=== PATIENT | female | born 1940 | race Caucasian/White ===

== ENCOUNTER 2021-06-24 21:28 | Inpatient (IN) | payer MEDICARE, OTHER ==
[~2021-06-24] VITALS: Ht 170.2 cm; Wt 90.7 kg
--- NOTE | 2021-06-24 21:49 | NUR ---
BIBRA C/O OF SOB HX OF CHF. ARRIVED SATTING 100% ON EMS BREATHING TREATMENT WITH LABORED BREATHING AND AUDITORY WHEEZES BILATERALLY. BT PLACED ON 5LPM NC SATTING 97%. A&OX4 PLACED ON MONITOR AND PULSE. MD AT BEDSIDE FOR EVAL.
[2021-06-24] MEDS ORDERED: ALBUTEROL FS 2.5 MG/3 ML VIAL.NEB ONE (22:26)
[2021-06-24] MEDS ORDERED: IPRATROPIUM NEB FS 0.5 MG/2.5 ML AMPUL.NEB ONE (22:26)
--- NOTE | 2021-06-24 22:26 | NUR ---
RT AT BEDSIDE
--- NOTE | 2021-06-24 22:26 | NUR ---
COVID SWABS SENT TO LAB
[2021-06-24] MEDS ORDERED: ALBUTEROL FS 2.5 MG/3 ML VIAL.NEB CONTNEB ONE (22:30)
[2021-06-24] MEDS ORDERED: IPRATROPIUM NEB FS 0.5 MG/2.5 ML AMPUL.NEB NEB ONE (22:30)
[2021-06-24 22:50] LABS: ABG BASE EXCESS 0.9 mmol/L; ABG PCO2 42.5 mmHg (35.0-45.0); ABG PH 7.401 (7.350-7.450); COHb 0.3 % (0.5-1.5); MetHb 0.4 % (0.0-1.5); O2Hb 93.9 % (94.0-97.0); SITE, ABG Right Brachial
[2021-06-24 23:17] LABS: BASOPHILS % (AUTO) 0.4 % (0.0-2.0); EOSINOPHILS % (AUTO) 0.3 % (0.0-6.0); HEMATOCRIT 32 % (33-45); LYMPHOCYTES # (AUTO) 0.9 K/uL (0.8-4.8); LYMPHOCYTES % (AUTO) 7.4 % (20.0-44.0); MEAN CORPUSCULAR HGB CONC 32 g/dl (31.0-36.0); MEAN CORPUSCULAR VOLUME 89 fL (82-100); MONOCYTES # (AUTO) 0.5 K/uL (0.1-1.30); MONOCYTES % (AUTO) 4.1 % (2.0-12.0); NEUTROPHILS # (AUTO) 10.3 K/uL (1.8-8.9); NEUTROPHILS % (AUTO) 87.8 % (43.0-81.0); PLATELET COUNT (AUTO) 130 K/uL (150-450); RED BLOOD CELL COUNT(AUTO) 3.55 MIL/uL (4.0-5.2); WHITE BLOOD COUNT (AUTO) 11.7 K/uL (4.3-11.0)
[2021-06-24 23:38] LABS: CALCIUM, SERUM 8.6 mg/dL (8.5-10.1); CARBON DIOXIDE 30 mmol/L (21-32); CHLORIDE 100 mmol/L (98-107); CREATININE 1.7 mg/dL (0.6-1.3); GLUCOSE 338 mg/dL (74-106); POTASSIUM 4.2 mmol/L (3.5-5.1); SODIUM SERUM 136 mmol/L (136-145); UREA NITROGEN, BLOOD 51 mg/dL (7-18)
[2021-06-24] MEDS ORDERED: FUROSEMIDE 40 MG/4 ML VIAL ONE (23:57)
[2021-06-25 00:41] LABS: BAND % (MANUAL) 1 % (0.0-5.0); EOSINOPHILS % (MANUAL) 1 % (0-4); LYMPHOCYTES % (MANUAL) 7 % (16-48); METAMYELOCYTES % 1 % (0-0); MONOCYTES % (MANUAL) 2 % (0-11.0); MYELOCYTES % 1 % (0-0); NEUTROPHILS % (MANUAL) 87 (42-76)
--- NOTE | 2021-06-25 00:58 | NUR ---
CALLED [facility], TIME MOTION ANALYST DR VALENCIA
[2021-06-25] MEDS ORDERED: ERYTHROMYCIN BASE OPHTH 3.5 GM TUBE OP ONE (01:30)
[2021-06-25] MEDS ORDERED: MAGNESIUM HYDROXIDE 30 ML UDC PO PRN (01:30)
[2021-06-25] MEDS ORDERED: ZOLPIDEM TARTRATE 5 MG TABLET PO PRN (01:30)
[2021-06-25] MEDS ORDERED: ONDANSETRON HCL/PF 4 MG/2 ML VIAL IVP PRN (01:30)
[2021-06-25] MEDS ORDERED: Z GUARD REMEDY 2 OZ OINT TP PRN (01:30)
[2021-06-25] MEDS ORDERED: MAG HYDROX/AL HYDROX/SIMETH 30 ML UDC PO PRN (01:30)
[2021-06-25] MEDS ORDERED: ERYTHROMYCIN BASE OPHTH 3.5 GM TUBE ONE (01:44)
--- NOTE | 2021-06-25 01:54 | NUR ---
REPORT GIVEN TO SHALONDA TAVERAS FOR BINA
--- NOTE | 2021-06-25 02:00 | NUR ---
TELE/RN ADMITTING NOTE RECEIVED REPORT FROM COLD MEAT COOK JOSE. PATIENT BEING ADMITTED FOR CHF EXACERBATION AND ACUTE RESPIRATORY FAILURE. PATIENT IS ALERT AND ORIENTED X 1 - CONFUSED, ATTEMPTING TO PULL OFF O2 AND PULL IV LINE. BILATERAL SOFT WRIST RESTRAINTS ORDERED AND IN PLACE WITH POSITIVE CIRCULATION. NO SKIN ISSUES NOTED AROUND RESTRAINTS. PATIENT CONTINUES ON O2 VIA NRB MASK @ 15L WITH NO S/SX OF RESPIRATORY DISTRESS NOTED. IV ACCESS TO LEFT AC #18G INTACT, PATENT AND SALINE LOCKED. CONTINUES ON IV ABX. CONTINUES ON IV DIURETIC. SKIN CHECK PERFORMED WITH BRUISES NOTED TO ABDOMEN AND BILATERAL THIGHS , REDNESS/EXCORIATION TO SACRUM AND GROIN. PICTURES TAKEN AND PLACED IN CHART. TELE MONITOR APPLIED WITH READING OF CONTROLLED AFIB HR 77. CONTINUES ON NPO STATUS. CALL LIGHT WITHIN REACH. ASPIRATION, FALL AND SAFETY PRECAUTIONS MAINTAINED. WILL CONTINUE TO MONITOR.
[2021-06-25] MEDS ORDERED: FUROSEMIDE 40 MG/4 ML VIAL IV ONE ×2 (03:00)
[2021-06-25 03:14] VITALS: BP 106/55
[2021-06-25 04:00] VITALS: BP 118/53
[2021-06-25 05:34] LABS: ABG BASE EXCESS -0.5 mmol/L; ABG PCO2 43.3 mmHg (35.0-45.0); ABG PH 7.375 (7.350-7.450); ABG PO2 104.3 mmHg (75.0-100.0); COHb 0.1 % (0.5-1.5); MetHb 0.2 % (0.0-1.5); O2Hb 97.3 % (94.0-97.0); SITE, ABG Right Brachial; VENT MODE, BG NRB 15L
[2021-06-25] MEDS ORDERED: PIPERACILLIN /TAZOBACTAM 3.375 G VIAL IV ONE (05:50)
[2021-06-25] MEDS ORDERED: PIPERACILLIN /TAZOBACTAM 3.375 G in IV D5W 50 ML IV ONE (06:00)
--- NOTE | 2021-06-25 06:20 | NUR ---
TELE/RN CLOSING NOTE PATIENT CURRENTLY RESTING IN BED. AWAKE, ALERT AND ORIENTED X 1-2. DENIES PAIN AT THIS TIME. CONTINUES ON O2 15L VIA NRB WITH NO S/SX OF RESPIRATORY DISTRESS NOTED. IV ACCESS TO LEFT AC #18G INTACT, PATENT AND SALINE LOCKED. CONTINUES ON IV ABX. CONTINUES ON NPO STATUS. CONTINUES ON BILATERAL SOFT WRIST RESTRAINTS WITH POSITIVE CIRCULATION AND NO SKIN ISSUES NOTED. CALL LIGHT WITHIN REACH. FREQUENT POSITION DONE. ASPIRATION, FALL AND SAFETY PRECAUTIONS MAINTAINED. WILL ENDORSE PLAN OF CARE TO ONCOMING SHIFT.
[2021-06-25 08:00] VITALS: BP 129/64
--- NOTE | 2021-06-25 10:00 | NUR ---
RN NOTE HOME MEDS BROUGHT BY DAUGHTER. MEDS RECON DONE. DR. VALERIE Cunningham AWARE OF MEDS INPUT
[2021-06-25] MEDS ORDERED: MONT10TA22 PO (10:38)
[2021-06-25] MEDS ORDERED: SENN-261 PO (10:38)
[2021-06-25] MEDS ORDERED: CLON0.1T PO (10:38)
[2021-06-25] MEDS ORDERED: CLOP75TA15 PO (10:38)
[2021-06-25] MEDS ORDERED: METO25TA6 PO (10:38)
[2021-06-25] MEDS ORDERED: BENA20TA9 PO (10:38)
[2021-06-25] MEDS ORDERED: ISOS30TA86 PO (10:38)
[2021-06-25] MEDS ORDERED: RANO500T3 PO (10:38)
[2021-06-25] MEDS ORDERED: NYST15PO4 TP (10:38)
[2021-06-25] MEDS ORDERED: QUET50TA PO (10:38)
[2021-06-25] MEDS ORDERED: ONDA4TAB11 PO (10:38)
[2021-06-25] MEDS ORDERED: ROSU10TA2 PO (10:38)
[2021-06-25] MEDS ORDERED: FURO40TA5 PO (10:38)
[2021-06-25] MEDS ORDERED: DILT-5 PO (10:38)
[2021-06-25] MEDS ORDERED: DIGO125T PO (10:38)
[2021-06-25] MEDS: IPRATROPIUM NEB FS 0.5 MG/2.5 ML AMPUL.NEB NEB SCH ×4 (11:30→19:00)
[2021-06-25] MEDS: LEVALBUTEROL HCL NEB 1.25 MG/0.5 ML VIAL.NEB NEB PRN (11:57)
[2021-06-25 12:00] VITALS: BP 129/64
[2021-06-25] MEDS: PIPERACILLIN /TAZOBACTAM 3.375 G in IV D5W 50 ML IV SCH ×3 (12:26→23:55)
[2021-06-25] MEDS: FUROSEMIDE 40 MG/4 ML VIAL IV SCH ×2 (12:27→17:00)
[2021-06-25] MEDS: methylPREDNISolone SOD SUCC 40 MG/ML VIAL IV SCH ×2 (12:27→21:38)
[2021-06-25] MEDS: METOPROLOL TARTRATE 25 MG TABLET PO SCH ×2 (14:35→17:01)
[2021-06-25] MEDS: DILTIAZEM HCL CD 240 MG PO SCH (14:36)
[2021-06-25] MEDS: BENAZEPRIL HCL 20 MG TABLET PO SCH (14:36)
[2021-06-25] MEDS: RANOLAZINE 500 MG TAB.ER.12H PO SCH ×2 (14:36→16:59)
[2021-06-25] MEDS: CLOPIDOGREL BISULFATE 75 MG TABLET PO SCH (14:36)
[2021-06-25] MEDS: ISOSORBIDE MONONITRATE (30MG) 30 MG TAB.SR.24H PO SCH (14:37)
[2021-06-25 16:00] VITALS: BP 117/56
[2021-06-25] MEDS: NYSTATIN TOP POWDER 15 GM BOTTLE TP SCH (16:59)
[2021-06-25] MEDS: DIGOXIN 0.125 MG TABLET PO SCH (17:01)
--- NOTE | 2021-06-25 19:00 | NUR ---
RN NOTE RECEIVED PATIENT IN BED, ON SEMI MOORE'S, CONFUSED, TRIES TO REMOVE NON REBREATHER MASK OFF. SATURATION AT 97% ON 15LPM VIA NRB, AFIB CONTROLLED ON THE MONITOR, HR IS 76. NOTED GISSEL MIDLINE 18G, BOTH HUBS PATENT AND FLUSHING WELL, NO S/S OF INFECTION. B SOFT WRIST RESTRAINTS IN PLACE, SKIN AND CIRCULATION WAS CHECKED. JOHNSON CATHETER CONNECTED TO URINE BAG IN PLACE, DRAINING TO A CLEAR, YELLOW OUTPUT. SAFETY MEASURES IMPLEMENTED. PATIENT BED ALARM IS ON. HEAD OF BED ELEVATED. BED IS LOCKED, IN LOWEST POSITION AND SIDE RAILS UP. CALL LIGHT WITHIN REACH OF THE PATIENT. WILL CONTINUE TO MONITOR AND REASSESS FOR ANY CHANGES.
--- NOTE | 2021-06-25 19:16 | NUR ---
RT NOTE TRIED TO TITRATE TO SIMPLE MASK. PT SPO2 DROPPED TO 88%. PLACED BACK ON NRB AT 15LPM SPO2 CLIMBED BACK TO 94-95%. NO SOB NOTED. NO S/S OF DISTRESS NOTED. WILL CONTINUE TO MONITOR T/O SHIFT.
[2021-06-25 20:00] VITALS: BP 141/57
--- NOTE | 2021-06-25 20:54 | NUR ---
RT NOTE FOUND PT WITH NRB MASK IN HER MOUTH. SPO2 86-88%. PT AWAKE AND ANXIOUS. PLACED NRB MASK BACK ON FACE. SPO2 INCREASED TO 94-95%. WILL TRY TO TITRATE AGAIN LATER. NOTIFIED SHALONDA CARCAMO. WILL CONTINUE TO MONITOR T/O SHIFT. NO SOB NOTED, NO S/S OF RESPIRATORY DISTRESS NOTED.
[2021-06-25] MEDS: QUETIAPINE FUMARATE 25 MG TABLET PO SCH ×2 (21:39→22:00)
[2021-06-25] MEDS: ATORVASTATIN 10 MG TABLET PO SCH ×3 (21:39→23:39)
[2021-06-25] MEDS: SENNOSIDES 8.6 MG TABLET PO SCH ×3 (21:39→23:39)
[2021-06-25] MEDS: HEPARIN SODIUM, PORCINE 5000 UNITS/1 ML VIAL SQ SCH (21:41)
--- NOTE | 2021-06-25 22:58 | NUR ---
RT NOTE FOUND PT ASLEEP ON NRB. SPO2 90-93%.WILL CONTINUE TO MONITOR T/O SHIFT. NO SOB NOTED, NO S/S OF RESPIRATORY DISTRESS NOTED.
--- NOTE | 2021-06-25 23:39 | NUR ---
RN NOTE PATIENT INITIALLY REFUSED PO MEDS AT 2200, BUT PATIENT CHANGED HER MIND AND TOOK THEM. PT VERY CONFUSED AND TRIES TO TAKE NRB MASK OFF DESPITE ON B SOFT WRIST RESTRAINTS. WILL CONT TO MONITOR PT. RESOLUTION EXPERT AWARE
[2021-06-26] VITALS: BP 128/66
--- NOTE | 2021-06-26 00:15 | NUR ---
RN NOTE TELEPHONE CALL FROM PATIENT'S DAUGHTER, ASKING IF ALL HOME MEDICATIONS WERE ADMINISTERED INCLUDING LANTUS 25 UNITS, AND REGULAR INSULIN. HOWEVER, NO ACTIVE SLIDING SCALE ORDERED. ACCUCHECK RESULTED 540 MG/DL, REPEATED AND REVEALED 556 MG/DL. DR PIERSON WAS NOTIFIED, ORDERS RECEIVED TO START PATIENT ON MODERATE SLIDING SCALE, AND LANTUS 25 UNITS HS. HELMINTHOLOGY TEACHERSHALONDA TAVAREZ
[2021-06-26] MEDS: BLOOD SUGAR DIAGNOSTIC 1 EACH STRIP VI SCH ×2 (00:26→07:56)
[2021-06-26] MEDS ORDERED: DEXTROSE 50%-WATER 50 ML DISP.SYRIN IV PRN ×3 (00:30→17:30)
[2021-06-26] MEDS ORDERED: *INSULIN REGULAR(HUMULIN R)HUM 100 UNIT/ML VIAL SQ PRN ×2 (00:30→12:00)
[2021-06-26] MEDS ORDERED: INSULIN REGULAR, HUMAN 100 UNIT/ML 3 ML VIAL SQ PRN ×2 (00:30→12:00)
[2021-06-26] MEDS ORDERED: INSULIN REGULAR, HUMAN 100 UNIT/ML 3 ML VIAL ONE (01:05)
[2021-06-26] MEDS ORDERED: INSULIN GLARGINE, 100 UNIT/ML CARTRIDGE SQ ONE (01:05)
--- NOTE | 2021-06-26 02:20 | NUR ---
RN NOTE BLOOD SUGAR RECHECKED PER MD ORDER, RESULTED 529 MG/DL. DR PIERSON WAS NOTIFIED, ORDER RECEIVED TO ADMINISTER 10 UNITS MORE OF REGULAR INSULIN. WILL CONT TO MONITOR. METAL FURNITURE ASSEMBLER ELSA AWARE
[2021-06-26 04:00] VITALS: BP 157/59
--- NOTE | 2021-06-26 05:00 | NUR ---
RT NOTE PT MOVING AROUND TOO, MUCH REMOVES NRB SOMEHOW, WHILE BE RESTRAINED. TOLD PT TO STOP REMOVING NRB, DOSE NOT COMPLY. SPO2 CURRENTLY 92-94%. FAMILY AND DIVORCE LEGAL ASSISTANT CAME IN TO TELL HER TO LEAVE NRB ON. STILL MOVES AORUND ALOT. WILL CONTINUE TO MONITOR T/O SHIFT. NO S/S SOB OR ACUTE RESPIRATORY DISTRESS NOTED.
[2021-06-26] MEDS: PIPERACILLIN /TAZOBACTAM 3.375 G in IV D5W 50 ML IV SCH ×3 (05:19→17:15)
[2021-06-26] MEDS: methylPREDNISolone SOD SUCC 40 MG/ML VIAL IV SCH ×3 (05:20→21:41)
[2021-06-26 06:44] LABS: EOSINOPHILS % (AUTO) 0.1 % (0.0-6.0); HEMATOCRIT 27 % (33-45); HEMOGLOBIN 9.3 g/dL (11.5-14.8); LYMPHOCYTES # (AUTO) 0.6 K/uL (0.8-4.8); LYMPHOCYTES % (AUTO) 8.3 % (20.0-44.0); MEAN CORPUSCULAR HGB CONC 34 g/dl (31.0-36.0); MEAN CORPUSCULAR VOLUME 87 fL (82-100); MONOCYTES # (AUTO) 0.2 K/uL (0.1-1.30); MONOCYTES % (AUTO) 2.2 % (2.0-12.0); NEUTROPHILS # (AUTO) 6.2 K/uL (1.8-8.9); NEUTROPHILS % (AUTO) 89.4 % (43.0-81.0); PLATELET COUNT (AUTO) 134 K/uL (150-450); RED BLOOD CELL COUNT(AUTO) 3.17 MIL/uL (4.0-5.2); WHITE BLOOD COUNT (AUTO) 6.9 K/uL (4.3-11.0)
--- NOTE | 2021-06-26 07:15 | NUR ---
RN OPENING NOTE RECEIVE REPORT FROM PRODUCTION TECH NURSE. PATIENT IN STABLE CONDITION AT TIME OF REPORT. ON NONREBREATHER MASK AT 15L/MIN WITH O2 SAT OF 96% AND ABOVE. WILL FOLLOW UP AM LABS AND DOCTOR ORDERS. PROPER ISOLATION PRECAUTION IN PLACE. ALL SAFETY MEASURE IN PLACE. BED ON LOWEST POSITION WITH HOB ELEVATED. CALL LIGHT WITHIN REACH. WILL CONTINUE TO MONITOR.
[2021-06-26 07:16] LABS: ALANINE AMINOTRANSFERASE 26 U/L (12-78); ALBUMIN 2.9 g/dL (3.4-5.0); ALKALINE PHOSPHATASE 72 U/L (46-116); ASPARTATE AMINOTRANSFERASE 22 U/L (15-37); BILIRUBIN,TOTAL 0.5 mg/dL (0.2-1.0); CALCIUM, SERUM 9.4 mg/dL (8.5-10.1); CARBON DIOXIDE 28 mmol/L (21-32); CHLORIDE 101 mmol/L (98-107); CREATININE 1.7 mg/dL (0.6-1.3); MAGNESIUM 2.4 mg/dL (1.8-2.4); PHOSPHORUS 3.5 mg/dL (2.5-4.9); POTASSIUM 4.4 mmol/L (3.5-5.1); SODIUM SERUM 140 mmol/L (136-145); TOTAL PROTEIN, SERUM 7.4 g/dL (6.4-8.2); UREA NITROGEN, BLOOD 56 mg/dL (7-18)
[2021-06-26 07:21] LABS: IRON, SERUM 21 ug/dl (50-175); TOTAL IRON BINDING CAPACITY 276 ug/dl (250-450)
[2021-06-26 07:33] LABS: GLUCOSE 406 mg/dL (74-106)
[2021-06-26 08:00] VITALS: BP 156/54
[2021-06-26] MEDS: FUROSEMIDE 40 MG/4 ML VIAL IV SCH ×2 (08:07→16:26)
[2021-06-26] MEDS: NYSTATIN TOP POWDER 15 GM BOTTLE TP SCH ×2 (08:08→16:27)
[2021-06-26] MEDS: MONTELUKAST SODIUM (10MG) 10 MG TABLET PO SCH (08:09)
[2021-06-26] MEDS: RANOLAZINE 500 MG TAB.ER.12H PO SCH ×2 (08:09→16:26)
[2021-06-26] MEDS: BENAZEPRIL HCL 20 MG TABLET PO SCH (08:09)
[2021-06-26] MEDS: DILTIAZEM HCL CD 240 MG PO SCH (08:09)
[2021-06-26 08:10] LABS: CREATINE KINASE, TOTAL 36 U/L (26-192); FERRITIN 340 ng/mL (8-388)
[2021-06-26] MEDS: CLOPIDOGREL BISULFATE 75 MG TABLET PO SCH (08:10)
[2021-06-26] MEDS: ISOSORBIDE MONONITRATE (30MG) 30 MG TAB.SR.24H PO SCH (08:10)
[2021-06-26] MEDS: METOPROLOL TARTRATE 25 MG TABLET PO SCH ×2 (08:10→16:27)
[2021-06-26] MEDS: HEPARIN SODIUM, PORCINE 5000 UNITS/1 ML VIAL SQ SCH ×2 (08:11→21:44)
[2021-06-26] MEDS: IPRATROPIUM BROMIDE 14 GM INHALER (or 12.9 GM) IH SCH ×3 (10:31→20:24)
[2021-06-26 12:00] VITALS: BP 113/47
[2021-06-26] MEDS ORDERED: BLOOD SUGAR DIAGNOSTIC 1 EACH STRIP VI SCH (12:00)
[2021-06-26] MEDS: DIGOXIN 0.125 MG TABLET PO SCH (12:11)
[2021-06-26 16:00] VITALS: BP 116/63
[2021-06-26] MEDS: BLOOD SUGAR DIAGNOSTIC 1 EACH STRIP IN SCH ×2 (17:20→22:57)
[2021-06-26] MEDS: INSULIN REGULAR, HUMAN 100 UNIT/ML 3 ML VIAL SQ PRN ×2 (17:22→22:59)
--- NOTE | 2021-06-26 18:54 | NUR ---
RN CLOSING NOTE PATIENT IN STABLE CONDITION THROUGH OUT SHIFT. REMAIN ON NONREBREATHER MASK AT 15L/MIN. O2 SAT AT 93% AND ABOVE. BLOOD SUGAR AT [address] MILLER WAS NOTIFIED. SLIDING SCALE WAS CHANGED TO AGGRESSIVE. 20 UNITS WAS GIVEN. ECHOCARDIOGRAM WAS DONE. ORDER FOR ABG ON 06/27. PATIENT WAS CLEAN AND REPOSITION PER PROTOCOL. PROPER ISOLATION IN PLACE. ALL SAFETY MEASURE IN PLACE. BED ON LOWEST POSITION WITH HOB ELEVATED. CALL LIGHT WITHIN REACH. WILL CONTINUE TO MONITOR AND ENDORSE TO BI ARCHITECT NURSE.
--- NOTE | 2021-06-26 19:40 | NUR ---
RN OPENING NOTES RECEIVED PATIENT ON BED, ALERT, AWAKE AND VERBALLY RESPONSIVE, RESPIRATORY EVEN AND UNLABORED, ON NRB @ 15LPM, NO SOB NOTED, DENIES PAIN, NO S/S OF DISTRESS NOTED, REMAIN AFEBRILE. CONTROLLED AFID ON DEVELOPMENT VICE PRESIDENT WITH HR-77 .RESIDENT NOTED WITH GISSEL MIDLINE PATENT, INTACT AND FLUSHED WITH NS, NO INFILTRATION NOTED IN SITE. BED IN LOWEST POSITION, LOCKED, BED ALARM ARMED. ALL NEEDS ATTENDED. CALL LIGHT WITH IN REACH.
[2021-06-26 20:00] VITALS: BP 146/78
[2021-06-26] MEDS: SENNOSIDES 8.6 MG TABLET PO SCH (21:44)
[2021-06-26] MEDS: ATORVASTATIN 10 MG TABLET PO SCH (21:45)
[2021-06-26] MEDS: QUETIAPINE FUMARATE 25 MG TABLET PO SCH (21:45)
[2021-06-26] MEDS: INSULIN GLARGINE, 100 UNIT/ML CARTRIDGE SQ SCH (23:02)
--- NOTE | 2021-06-26 23:50 | NUR ---
RN NOTES RECEIVED ORDER FROM SIMI PIERSON NP. BACTROBAN 2% BID NOTED AND CARRIED OUT. CHARGE NURSE ESME TAVAREZ.
[2021-06-27] VITALS (7 sets, daily range): BP systolic 113–139; BP diastolic 59–82
[2021-06-27] MEDS: PIPERACILLIN /TAZOBACTAM 3.375 G in IV D5W 50 ML IV SCH ×4 (00:57→17:57)
[2021-06-27] MEDS: methylPREDNISolone SOD SUCC 40 MG/ML VIAL IV SCH ×3 (05:46→20:53)
[2021-06-27 06:52] LABS: BASOPHILS % (AUTO) 0.1 % (0.0-2.0); HEMATOCRIT 25 % (33-45); LYMPHOCYTES # (AUTO) 0.8 K/uL (0.8-4.8); LYMPHOCYTES % (AUTO) 6.4 % (20.0-44.0); MEAN CORPUSCULAR HGB CONC 33 g/dl (31.0-36.0); MEAN CORPUSCULAR VOLUME 87 fL (82-100); MONOCYTES # (AUTO) 0.3 K/uL (0.1-1.30); MONOCYTES % (AUTO) 2.6 % (2.0-12.0); NEUTROPHILS # (AUTO) 10.6 K/uL (1.8-8.9); NEUTROPHILS % (AUTO) 90.9 % (43.0-81.0); PLATELET COUNT (AUTO) 142 K/uL (150-450); RED BLOOD CELL COUNT(AUTO) 2.81 MIL/uL (4.0-5.2); WHITE BLOOD COUNT (AUTO) 11.7 K/uL (4.3-11.0)
[2021-06-27 07:07] LABS: ALANINE AMINOTRANSFERASE 22 U/L (12-78); ALBUMIN 2.3 g/dL (3.4-5.0); ALKALINE PHOSPHATASE 52 U/L (46-116); ASPARTATE AMINOTRANSFERASE 20 U/L (15-37); BILIRUBIN,TOTAL 0.3 mg/dL (0.2-1.0); CALCIUM, SERUM 8.6 mg/dL (8.5-10.1); CARBON DIOXIDE 32 mmol/L (21-32); CHLORIDE 105 mmol/L (98-107); CREATININE 1.6 mg/dL (0.6-1.3); GLUCOSE 174 mg/dL (74-106); MAGNESIUM 2.3 mg/dL (1.8-2.4); PHOSPHORUS 3.8 mg/dL (2.5-4.9); POTASSIUM 4.4 mmol/L (3.5-5.1); SODIUM SERUM 142 mmol/L (136-145); TOTAL PROTEIN, SERUM 6.1 g/dL (6.4-8.2); UREA NITROGEN, BLOOD 65 mg/dL (7-18)
--- NOTE | 2021-06-27 07:11 | NUR ---
RN CLOSING NOTES PATIENT SLEEPING ON BED, RESPIRATORY EVEN AND UNLABORED, ON NRB @ 15LPM, NO SOB NOTED, DENIES PAIN, NO S/S OF DISTRESS NOTED, REMAIN AFEBRILE. .RESIDENT WITH GISSEL MIDLINE PATENT, INTACT AND FLUSHED WITH NS, NO INFILTRATION NOTED IN SITE. BED IN LOWEST POSITION, LOCKED, BED ALARM ARMED. ALL NEEDS ATTENDED. CALL LIGHT WITH IN REACH
--- NOTE | 2021-06-27 07:17 | NUR ---
WIRE FENCE BUILDER OPENING NOTE RECEIVED PATIENT FROM NIGHT NURSE, PATIENT IS IN BED A/O 2 ON A NRB AT 15L. PATIENT HAS A RIGHT ARM MIDLINE INTACT.PATIENT IS ON A TELE MONITOR READING CONTROLLED AFIB PATIENT DOES NOT COMPLAIN OF PAIN AT THIS MOMENT, SAFETY PROTOCOL IN PLACE, BED IN THE LOWEST POSITION, 3 SIDE RAILS UP AND CALL LIGHT WITHIN REACH.
[2021-06-27] MEDS: BLOOD SUGAR DIAGNOSTIC 1 EACH STRIP IN SCH ×4 (07:30→21:10)
[2021-06-27] MEDS: IPRATROPIUM BROMIDE 14 GM INHALER (or 12.9 GM) IH SCH ×3 (07:35→20:18)
[2021-06-27] MEDS: FUROSEMIDE 40 MG/4 ML VIAL IV SCH ×2 (08:49→17:13)
[2021-06-27] MEDS: NYSTATIN TOP POWDER 15 GM BOTTLE TP SCH ×2 (09:00→17:14)
[2021-06-27] MEDS: HEPARIN SODIUM, PORCINE 5000 UNITS/1 ML VIAL SQ SCH ×2 (09:01→20:54)
[2021-06-27] MEDS: ISOSORBIDE MONONITRATE (30MG) 30 MG TAB.SR.24H PO SCH (09:03)
[2021-06-27] MEDS: MONTELUKAST SODIUM (10MG) 10 MG TABLET PO SCH (09:04)
[2021-06-27] MEDS: DILTIAZEM HCL CD 240 MG PO SCH (09:04)
[2021-06-27] MEDS: RANOLAZINE 500 MG TAB.ER.12H PO SCH ×2 (09:04→17:13)
[2021-06-27] MEDS: BENAZEPRIL HCL 20 MG TABLET PO SCH (09:05)
[2021-06-27] MEDS: METOPROLOL TARTRATE 25 MG TABLET PO SCH ×2 (09:06→17:14)
[2021-06-27] MEDS: CLOPIDOGREL BISULFATE 75 MG TABLET PO SCH (09:06)
[2021-06-27] MEDS: MUPIROCIN OINT 2% 22 GM TUBE NS SCH ×2 (11:02→21:09)
[2021-06-27] MEDS: *INSULIN REGULAR(HUMULIN R)HUM 100 UNIT/ML VIAL SQ PRN ×3 (13:09→21:26)
[2021-06-27] MEDS: DIGOXIN 0.125 MG TABLET PO SCH (13:44)
--- NOTE | 2021-06-27 15:27 | NUR ---
RN NOTES - RECEIVED PATIENT ASLEEP IN BED, EASY TO AROUSE, ON OXYGEN NRB -15L, 88-96 PERCENT FLUCUTATING BETWEEN, PATIENT DOES TAKE OFF BREATHING TREATMENT OFTEN, EDUCATED TO KEEP DEVICE ON COMPLIANT AT THIS TIME, RIGHT ARM MIDLINE INTACT, TELE MONITOR READING CONTROLLED A-FIB , NO COMPLAINT OF PAIN, NO SOB NOTED , SAFETY PROTOCOLS IN PLACE, BED IN THE LOWEST POSITION, ALL WHEELS LOCKED, 3 SIDE RAILS UP AND CALL LIGHT WITHIN REACH.
--- NOTE | 2021-06-27 19:30 | NUR ---
RN OPENING NOTE RECEIVED PATIENT IN BED. A/OX2, PARAGUAYAN SPEAKING, ABLE TO MAKE BASIC NEEDS KNOWN. ON OXYGEN 15L VIA NONREBREATHER. PATIENT IS SOB WHEN REMOVING NRB MASK. BILATERAL SOFT WRIST ON, NO REDNESS AT WRIST, CAP REFILL WNL. IV ACCESS IN GISSEL MIDLINE PATENT AND SALINE LOCKED. TELE MONITOR READS CONTROLLED AFIB. BED IS LOW AND LOCKED, HOB ELEVATED IN SEMI FOWLERS, SIDE RAILS UPX2, CALL LIGHT WITHIN REACH.
[2021-06-27] MEDS: ATORVASTATIN 10 MG TABLET PO SCH (21:09)
[2021-06-27] MEDS: SENNOSIDES 8.6 MG TABLET PO SCH (21:09)
[2021-06-27] MEDS: QUETIAPINE FUMARATE 25 MG TABLET PO SCH (21:09)
[2021-06-27] MEDS: INSULIN GLARGINE, 100 UNIT/ML CARTRIDGE SQ SCH (21:27)
[2021-06-27] MEDS: ACETAMINOPHEN 325 MG TABLET PO PRN (21:32)
--- NOTE | 2021-06-27 23:00 | NUR ---
RN NOTE SPOKE WITH DAUGHTER SERINA. INFORMED HER PATIENT IS ON RESTRAINTS. DAUGHTER WAS VERY UNHAPPY THAT SHE WAS ON RESTRAINTS. INFORMED HER THAT PATIENT IS CONTINUOUSLY REMOVING OXYGEN AND O2 SATURATION GOES ALEXIS TO THE 70S. FAMILY IS REQUESTING AND DEMANDING THAT RESTRAINTS NOT BE USED ON HER MOTHER, WOULD LIKE TO SPEAK WITH THE HUMIDIFIER MAINTENANCE WORKER TOUR MANAGER SUP. TRANSFERRED TO JACKELYN LIZ. DAUGHTER IS COMING TO VISIT PATIENT AT WINDOW D/T PATIENT IS STILL R/O COVID.
[2021-06-28] VITALS (17 sets, daily range): BP systolic 90–160; BP diastolic 35–117
--- NOTE | 2021-06-28 | NUR ---
RN NOTE DAUGHTER SERINA AT WINDOW. SPOKE WITH MOTHER VIA TELE PHONE AND INFORMED HER NOT TO REMOVE MASK. STATES IF WE ARE HAVING PROBLEMS WITH HER MOTHER WE SHOULD CALL HER TO INTERPRET AND GIVE MORE EDUCATION ABOUT KEEPING ON OXYGEN.
[2021-06-28] MEDS: PIPERACILLIN /TAZOBACTAM 3.375 G in IV D5W 50 ML IV SCH ×4 (00:29→20:43)
--- NOTE | 2021-06-28 01:01 | NUR ---
RN NOTE DAUGHTER SERINA CALLED TO ASK ABOUT SACRAL WOUND, FROM LOOKING AT PREVIOUS PICTURES IN CHART IS DOES LOOK SLIGHTLY BETTER. INFORMED HER WE ARE DOING THE TREATMENT. SERINA ALSO ASKED ABOUT COVID PCR TEST, INFORMED WILL NEED TO CALL LAB TO GET RESULTS, IT MAY TAKE A WHILE. SHE WILL CALL LATER FOR UPDATE.
[2021-06-28] MEDS: methylPREDNISolone SOD SUCC 40 MG/ML VIAL IV SCH ×3 (06:00→21:36)
[2021-06-28 06:22] LABS: BASOPHILS % (AUTO) 0.1 % (0.0-2.0); HEMATOCRIT 29 % (33-45); HEMOGLOBIN 9.5 g/dL (11.5-14.8); LYMPHOCYTES # (AUTO) 0.5 K/uL (0.8-4.8); LYMPHOCYTES % (AUTO) 5.2 % (20.0-44.0); MEAN CORPUSCULAR HGB CONC 33 g/dl (31.0-36.0); MEAN CORPUSCULAR VOLUME 87 fL (82-100); MONOCYTES # (AUTO) 0.2 K/uL (0.1-1.30); MONOCYTES % (AUTO) 2.1 % (2.0-12.0); NEUTROPHILS # (AUTO) 9.3 K/uL (1.8-8.9); NEUTROPHILS % (AUTO) 92.6 % (43.0-81.0); PLATELET COUNT (AUTO) 191 K/uL (150-450); RED BLOOD CELL COUNT(AUTO) 3.38 MIL/uL (4.0-5.2); WHITE BLOOD COUNT (AUTO) 10.1 K/uL (4.3-11.0)
[2021-06-28 06:41] LABS: ALANINE AMINOTRANSFERASE 27 U/L (12-78); ALBUMIN 2.7 g/dL (3.4-5.0); ALKALINE PHOSPHATASE 44 U/L (46-116); ASPARTATE AMINOTRANSFERASE 17 U/L (15-37); BILIRUBIN,TOTAL 0.5 mg/dL (0.2-1.0); CALCIUM, SERUM 8.7 mg/dL (8.5-10.1); CARBON DIOXIDE 33 mmol/L (21-32); CHLORIDE 102 mmol/L (98-107); CREATININE 1.8 mg/dL (0.6-1.3); GLUCOSE 199 mg/dL (74-106); MAGNESIUM 2.4 mg/dL (1.8-2.4); PHOSPHORUS 4.6 mg/dL (2.5-4.9); POTASSIUM 3.7 mmol/L (3.5-5.1); SODIUM SERUM 142 mmol/L (136-145); TOTAL PROTEIN, SERUM 6.8 g/dL (6.4-8.2); UREA NITROGEN, BLOOD 71 mg/dL (7-18)
--- NOTE | 2021-06-28 07:54 | NUR ---
GAME OPERATOR NOTE PATIENT IN BED AWAKE ALERT WITH 15 L NONREBREATHER MASK SATURATION 96% AT THIS TIME, ON TELE MONITOR SR HR 65 , RT AC HL INTACT, BED IN LOWEST AND LOCKED POSITION, ON TELE MONITOR AFIB HR 100 AT THIS TIME, WITH SOB NOTED, ALL NEEDS ATTENDED TRYING TO REMOVE MASK EXPLAINED NOT TO REMOVE , WILL F\U
--- NOTE | 2021-06-28 07:57 | NUR ---
RN CLOSING NOTE RESTING IN BED. A/OX2, REMAINS ON OXYGEN 15L VIA NONREBREATHER. PATIENT CONTINUES TO REMOVE O2 MULTIPLE TIMES THROUGHOUT SHIFT. O2 SAT DROP TO 70S. DAUGHTER SERINA MADE AWARE. DAUGHTER REQUEST NOT TO PLACE BILATERAL SSFT WRIST RESTRAINTS. RN PULPIT OPERATOR JACKELYN ALSO SPOKE WITH DAUGHTER TO INFORM HER OF RISK AND BENEFITS. GISSEL MIDLINE MAINTAINED. HR CONTINUES TO BE CONTROLLED AFIB, BUT WHEN IN RESP DISTRESS DOES INCREASE TO 120S - 130. BED REMAINS LOW AND LOCKED, HOB ELEVATED IN SEMI FOWLERS, SIDE RAILS UPX2, ARASELI LIGHT WITHIN REACH. WILL ENDORSE TO ONCOMING SHIFT.
--- NOTE | 2021-06-28 08:00 | NUR ---
TERRA COTTA SETTER NOTE ROUNDS MADE NOTED PATIENT IS WHEEZING AND SATURATION 92% PATINE LESS RESPONSIVE THE EARLIER IN MORNING, RT AT BEDSIDE CALLED TO DR WILBER NIELSON TO DO ABG , WILL F\U
--- NOTE | 2021-06-28 08:20 | NUR ---
TIME STUDY STATISTICIAN NOTE ABG RESULT REPORT TO DR MOREJON BY RT PER DR PORTILLO PK TO LEAVE ON NONREBREATHER MASK , UNABLRE LARS TAKE PO MEDS AT THIS TIME WILL F\U NOTED BLEEDING FROM MOUTH, MOUTH CARE DONE WILL HOLD BLOOD THINNER MEDS WILL F\U WITH
[2021-06-28] MEDS: INSULIN GLARGINE, 100 UNIT/ML CARTRIDGE SQ SCH ×3 (08:30→17:00)
[2021-06-28 08:38] LABS: ABG BASE EXCESS -2.1 mmol/L; ABG OXYGEN SATURATION 95.1 % (92.0-98.5); ABG PCO2 50.8 mmHg (35.0-45.0); ABG PH 7.301 (7.350-7.450); AaDO2 572.2 mmHg; COHb 0.3 % (0.5-1.5); MetHb 0.3 % (0.0-1.5); O2Hb 94.5 % (94.0-97.0); SITE, ABG Left Radial; VENT MODE, BG non rebreather
[2021-06-28] MEDS: IPRATROPIUM BROMIDE 14 GM INHALER (or 12.9 GM) IH SCH ×2 (08:44→19:30)
[2021-06-28] MEDS: FUROSEMIDE 40 MG/4 ML VIAL IV SCH (08:44)
[2021-06-28] MEDS: BLOOD SUGAR DIAGNOSTIC 1 EACH STRIP IN SCH ×3 (08:47→17:45)
[2021-06-28] MEDS: MUPIROCIN OINT 2% 22 GM TUBE NS SCH ×2 (08:47→21:46)
[2021-06-28] MEDS: BENAZEPRIL HCL 20 MG TABLET PO SCH (09:00)
[2021-06-28] MEDS: CLOPIDOGREL BISULFATE 75 MG TABLET PO SCH (09:00)
[2021-06-28] MEDS: DILTIAZEM HCL CD 240 MG PO SCH (09:00)
[2021-06-28] MEDS: RANOLAZINE 500 MG TAB.ER.12H PO SCH ×2 (09:00→17:57)
[2021-06-28] MEDS: MONTELUKAST SODIUM (10MG) 10 MG TABLET PO SCH (09:00)
[2021-06-28] MEDS: HEPARIN SODIUM, PORCINE 5000 UNITS/1 ML VIAL SQ SCH (09:00)
[2021-06-28] MEDS: ISOSORBIDE MONONITRATE (30MG) 30 MG TAB.SR.24H PO SCH (09:00)
[2021-06-28] MEDS: METOPROLOL TARTRATE 25 MG TABLET PO SCH ×2 (09:00→16:49)
--- NOTE | 2021-06-28 09:00 | NUR ---
SUBSTANCE ADDICTION COORDINATOR NOTE STILL UNABLE TO GIVE PO MEDS AND HOLD INSULIN ,PATIENT IS LETHARGIC , SPOKE WITH DR CHEEK AWARE OF IT
[2021-06-28] MEDS: NYSTATIN TOP POWDER 15 GM BOTTLE TP SCH (09:05)
--- NOTE | 2021-06-28 09:59 | NUR ---
WOUND CARE CONSULT: PT SEEN PER TRANSIT COACH OPERATOR FOR SKIN ASSESSMENT. PT PRESENTS WITH MULTIPLE AREAS OF SKIN DISCOLORATION, ESPECIALLY ON ABDOMEN, GENERALIZED EDEMA, BLANCHABLE REDNESS TO HEELS AND RASH TO ABDOMINAL/GROIN FOLDS, BUTTOCKS AND PERINEUM, PRESENT ON ADMISSION. RECOMMENDATIONS MADE FOR SKIN PROTECTION. DISCUSSED WITH NURSING STAFF. PT IS ON EVERARDO ISOFLEX LOW AIRLOSS BED. MDI N AGREEMENT WITH PLAN OF CARE.
--- NOTE | 2021-06-28 10:24 | NUR ---
JUVENILE CORRECTIONS OFFICER NOTE PER DAUGHTER WANTS TO TRANSFER TO ICU FOR CLOSER OBSERVATION, DR العراقي AT BEDSIDE NOTIFIED THAT PATIENT HAS BRUISES DUE ON ABDOMEN SECONDARY TO HEPARIN INJECTION ALSO AWARE THAT WAS BLEEDING FROM MOUTH AND HOLD HEPARIN STATED ITS OK AT THIS TIME , WOUND CARE NURSE AT BEDSIDE SEEN HELLS NO WOUNDS OR REDNESS NOTED ,KEEP OF PRESSURE AT ALL TIME , AND OFF LOAD , DR CELIS AWARE THAT EARLIER PATIENT HAD RESPIRATORY DISTRESS AND DR MOREJON AWARE OF PATIENT CONDITION
--- NOTE | 2021-06-28 11:30 | NUR ---
teletypesetter monitor note transferred to icu as ordered by acls protocol report given to ricardo pritchett
[2021-06-28 12:11] LABS: *SPE A/G RATIO 0.9 (0.7-1.7); *SPE ALPHA-1-GLOBULIN 0.5 g/dL (0.0-0.4); *SPE M-SPIKE Not Observed g/dL (Not Observed)
[2021-06-28] MEDS: DIGOXIN 0.125 MG TABLET PO SCH (13:05)
[2021-06-28] MEDS: INSULIN REGULAR, HUMAN 100 UNIT/ML 3 ML VIAL SQ PRN ×2 (13:07→17:47)
[2021-06-28] MEDS: SOD FERRIC GLUC 125 MG in IV NS 0.9% 100 ML IV SCH (14:54)
[2021-06-28] MEDS ORDERED: APIXABAN 5 MG TABLET PO SCH (15:00)
[2021-06-28] MEDS: BUMETANIDE INJ 0.25 MG/ML VIAL IV SCH (16:44)
[2021-06-28] MEDS: ACETAMINOPHEN 325 MG TABLET PO PRN (16:44)
[2021-06-28] MEDS: CLOTRIMAZOLE 1% 15 GM TUBE TP SCH (17:28)
--- NOTE | 2021-06-28 17:50 | NUR ---
RN NOTE PT REPORTED CHEST PAIN ON LEFT SIDE OF PAIN 10 OUT OF [address] BLAIR OF EKG WHICH INDICATED ABNORMAL AFIB , ORDERED CXR, NTG SL, AND ABG.
--- NOTE | 2021-06-28 18:50 | NUR ---
RN NOTE ABG RESULTS SENT TO DR. MOREJON. DR MOREJON ORDERED PEEP 5, RATE 24, 100% TV 450 AND ORDER ABG POST 1 HOUR. PT IS NOW INTUBATED. PT IS FULL CODE. FAMILY WAS HESITANT AND GAVE THE OKAY TO INTUBATE.
[2021-06-28 18:58] LABS: ABG BASE EXCESS -0.5 mmol/L; ABG PCO2 91.9 mmHg (35.0-45.0); ABG PO2 45.3 mmHg (75.0-100.0); AaDO2 575.8 mmHg; COHb 0.4 % (0.5-1.5); MetHb 0.1 % (0.0-1.5); O2Hb 65.7 % (94.0-97.0); SITE, ABG Right Brachial; VENT MODE, BG 15L NON REBREATHER
--- NOTE | 2021-06-28 19:37 | NUR ---
RT NOTE PT INTUBATED @ 1919 DUE TO RESPIRATORY ACIDOSIS. 7.0 ET TUBE INSERTED @ 23 CM LIP LINE, SECURED VIA ANCHOR FAST. MODERATE THIN RED BLOODY SECRETIONS NOTED. NOTED VENT SETTINGS: AC 24, 450, 100%, +5. BILATERAL CHEST RISE NOTED. VENT PLUGGED TO RED OUTLET. ALARMS ON AND AUDIBLE. WILL CONTINUE TO MONITOR CLOSELY T/O SHIFT.
[2021-06-28] MEDS: PROPOFOL 100 ML IV PRN (20:32)
[2021-06-28 20:56] LABS: ABG BASE EXCESS 3.9 mmol/L; ABG OXYGEN SATURATION 98.3 % (92.0-98.5); ABG PH 7.455 (7.350-7.450); ABG PO2 128.4 mmHg (75.0-100.0); AaDO2 543.6 mmHg; MetHb 0.3 % (0.0-1.5); PEEP,BG 5 cm H2O; SITE, ABG Left Radial; VT, ABG 450 mL
--- NOTE | 2021-06-28 21:15 | NUR ---
ICU/PLASTICS SCIENTIST DR MOREJON CALLED AND GAVE RESULTS OF THE 1 HOUR POST INTUBATION FOR THIS PT WHICH IS CURRENTLY IN THE CHART BECAUSE IT DID NOT GO THROUGH TO THE COMPUTER. DR MOREJON GAVE ORDER FOR A/C RR-20, TV-400, FIO2-70, +5 THIS WAS FROM EARLIER A/C-24, 450,+5. ALSO ABG IN AM AND CXR.
--- NOTE | 2021-06-28 21:20 | NUR ---
ICU/ZIPPER IRONER PT'S 2 RINGS WERE GIVEN TO DAUGHTER, RAHEEM. SHE SIGNED AND THIS WAS GIVEN TO HER. CHARGE NURSE MADE AWARE.
[2021-06-28] MEDS: QUETIAPINE FUMARATE 25 MG TABLET PO SCH (21:47)
--- NOTE | 2021-06-28 21:47 | NUR ---
ICU/HR DIRECTOR PT IS CURRENTLY INTUBATED AND SEDATED, THERE IS NO NEED FOR 2200 MEDICATION OF SEROQUEL.
[2021-06-28] MEDS: SENNOSIDES 8.6 MG TABLET PO SCH (22:11)
[2021-06-28] MEDS: ATORVASTATIN 10 MG TABLET PO SCH (22:11)
[2021-06-29] VITALS (94 sets, daily range): BP systolic 78–169; BP diastolic 31–99
[2021-06-29] MEDS ORDERED: BLOOD SUGAR DIAGNOSTIC 1 EACH STRIP IN SCH
[2021-06-29] MEDS ORDERED: DEXTROSE 50%-WATER 50 ML DISP.SYRIN IV PRN
[2021-06-29] MEDS: BLOOD SUGAR DIAGNOSTIC 1 EACH STRIP IN SCH ×4 (00:19→17:07)
[2021-06-29] MEDS: INSULIN REGULAR, HUMAN 100 UNIT/ML 3 ML VIAL SQ PRN ×3 (00:20→17:20)
[2021-06-29] MEDS: PIPERACILLIN /TAZOBACTAM 3.375 G in IV D5W 50 ML IV SCH ×2 (00:23→05:10)
[2021-06-29] MEDS ORDERED: NOREPINEPHRINE 4 MG/4 ML AMPUL IV ONE (01:08)
[2021-06-29] MEDS: NOREPINEPHRINE 32 MG in IV NS 0.9% 218 ML IV PRN ×2 (01:13→21:43)
--- NOTE | 2021-06-29 01:20 | NUR ---
ICU/PARACHUTE ACCESSORIES ATTACHER PT'S BLOOD PRESSURE WAS LOW, RECIEVED AND ORDER FOR LEVO 32MCG. THIS WAS RECIEVED AND CARRIED OUT. WILL CONTINUE TO MONITOR THIS PT'S BP.
[2021-06-29] MEDS: PROPOFOL 100 ML IV PRN ×6 (03:01→23:10)
[2021-06-29] MEDS: methylPREDNISolone SOD SUCC 40 MG/ML VIAL IV SCH ×3 (05:10→21:41)
--- NOTE | 2021-06-29 05:42 | NUR ---
ICU/MILL WORK PT'S HEART RATE INCREASED TO 130'S, PT APPEARS TO HAVE BEEN WAKING UP. NOTIFED CHARGE NURSE ABOUT THIS, SEDATION OF DIPRIVAN WAS TITRATED UP. WILL CONTINUE TO MONITOR THIS PT.
[2021-06-29 05:53] LABS: HEMATOCRIT 30 % (33-45); HEMOGLOBIN 9.9 g/dL (11.5-14.8); LYMPHOCYTES # (AUTO) 0.5 K/uL (0.8-4.8); LYMPHOCYTES % (AUTO) 3.6 % (20.0-44.0); MEAN CORPUSCULAR HGB CONC 33 g/dl (31.0-36.0); MEAN CORPUSCULAR VOLUME 86 fL (82-100); MONOCYTES # (AUTO) 0.4 K/uL (0.1-1.30); MONOCYTES % (AUTO) 2.7 % (2.0-12.0); NEUTROPHILS # (AUTO) 13.5 K/uL (1.8-8.9); NEUTROPHILS % (AUTO) 93.7 % (43.0-81.0); PLATELET COUNT (AUTO) 195 K/uL (150-450); RED BLOOD CELL COUNT(AUTO) 3.51 MIL/uL (4.0-5.2); WHITE BLOOD COUNT (AUTO) 14.4 K/uL (4.3-11.0)
[2021-06-29 06:58] LABS: CALCIUM, SERUM 8.6 mg/dL (8.5-10.1); CARBON DIOXIDE 33 mmol/L (21-32); CHLORIDE 106 mmol/L (98-107); CREATININE 1.8 mg/dL (0.6-1.3); GLUCOSE 123 mg/dL (74-106); MAGNESIUM 2.4 mg/dL (1.8-2.4); POTASSIUM 3.1 mmol/L (3.5-5.1); SODIUM SERUM 147 mmol/L (136-145); UREA NITROGEN, BLOOD 77 mg/dL (7-18)
--- NOTE | 2021-06-29 07:30 | NUR ---
RN NOTES PT FOUND SEMI FOWLERS DISPLAYING NO S/S OF DISTRESS, FLACC = 0, RIKERS = 3, BILATERAL RISE AND FALL OF THE CHEST OBSERVED. RESIDUAL < 5ML. SOFT WRIST RESTRAINTS APPLIED, PULSES PALPATED BILATERALLY. JOHNSON CATH BELOW PATIENT DRAINING BY GRAVITY. R UA MIDLINE PATIENT AND INTACT. VSS, RN WILL MONITOR AND TREAT THROUGHOUT SHIFT. SAFETY MEASURES IN PLACE, BED LOCKED AND IN LOWEST POSITION, SIDE RAILS UPX2, CALL LIGHT WITHIN REACH, BED ALARM ARMED.
[2021-06-29] MEDS: IPRATROPIUM BROMIDE 14 GM INHALER (or 12.9 GM) IH SCH ×3 (07:35→20:22)
--- NOTE | 2021-06-29 07:48 | NUR ---
RT PATIENT REC'D ORALLY INTUBATED ON [facility] VENT WITH ORDERED SETTINGS EMILIA WELL. VENT ALARMS CHECKED + AUDIBLE. CUFF PRESSURE CHECKED SHEET METAL HELPER. ETT SECURE AND IN PROPER POSITION. PATIENT SEDATED AND APPEARS COMFORTABLE. AMBU BAG AT THE HOB Addendum: 06/29/21 at 1233 by MARIANO SALTER RT Amended: Links added.
[2021-06-29] MEDS ORDERED: VANCOMYCIN 1 GM in IV D5W 250 ML IV SCH (08:30)
[2021-06-29 08:55] LABS: ABG BASE EXCESS 7.1 mmol/L; ABG PCO2 41.3 mmHg (35.0-45.0); ABG PH 7.493 (7.350-7.450); ABG PO2 67.5 mmHg (75.0-100.0); COHb 0.3 % (0.5-1.5); MetHb 0.3 % (0.0-1.5); O2Hb 93.3 % (94.0-97.0); SITE, ABG Right Radial
[2021-06-29] MEDS: DILTIAZEM HCL CD 240 MG PO SCH (09:00)
[2021-06-29] MEDS: BENAZEPRIL HCL 20 MG TABLET PO SCH (09:00)
[2021-06-29] MEDS ORDERED: CEFEPIME 1 GM VIAL IM SCH (09:00)
[2021-06-29] MEDS: ISOSORBIDE MONONITRATE (30MG) 30 MG TAB.SR.24H PO SCH (09:00)
[2021-06-29] MEDS: RANOLAZINE 500 MG TAB.ER.12H PO SCH ×2 (09:00→17:00)
--- NOTE | 2021-06-29 09:00 | NUR ---
MD COMMUNICATION RN INFORMED VETERINARY TOXICOLOGIST OF PT'S VASOACTIVE RX AND PO BP RX. ACKNOWLEDGED AND ORDERED RN TO HOLD ALL EXCEPT LOPRESSOR. RN ACKNOWLEDGED AND WILL EXECUTE ORDERS DIRECTED.
[2021-06-29 09:04] LABS: THYROID STIMULATING HORMONE 1.022 uIU/mL (0.358-3.74)
[2021-06-29] MEDS: MONTELUKAST SODIUM (10MG) 10 MG TABLET PO SCH (09:23)
[2021-06-29] MEDS: METOPROLOL TARTRATE 25 MG TABLET PO SCH ×2 (09:23→17:23)
[2021-06-29] MEDS: BUMETANIDE INJ 0.25 MG/ML VIAL IV SCH ×2 (09:23→17:23)
[2021-06-29] MEDS: INSULIN GLARGINE, 100 UNIT/ML CARTRIDGE SQ SCH ×2 (09:25→17:21)
[2021-06-29] MEDS: POTASSIUM CL. PREMIX PERIPHER. 50 ML IV SCH ×3 (10:05→12:23)
[2021-06-29] MEDS ORDERED: CEFEPIME 1 GM in IV D5W 50 ML IV SCH (11:00)
[2021-06-29] MEDS ORDERED: VANCOMYCIN 1.25 GM in IV D5W 250 ML IV ONE (11:00)
[2021-06-29] MEDS ORDERED: METRONIDAZOLE 500MG/ NS 100ML 500 MG in PREMIX 1 EA IV SCH (11:00)
[2021-06-29] MEDS: DIGOXIN 0.125 MG TABLET PO SCH (12:57)
[2021-06-29] MEDS: MUPIROCIN OINT 2% 22 GM TUBE NS SCH ×2 (12:58→21:56)
[2021-06-29] MEDS: CLOTRIMAZOLE 1% 15 GM TUBE TP SCH ×2 (12:58→17:37)
[2021-06-29] MEDS: ALBUMIN 25% 25 GM in PREMIX 1 EA IV SCH ×2 (13:50→20:43)
[2021-06-29] MEDS ORDERED: ETOMIDATE 2 MG/ML VIAL IV ONE (14:46)
[2021-06-29] MEDS ORDERED: ROCURONIUM BROMIDE 50 MG/5 ML IV ONE (14:46)
[2021-06-29] MEDS: SOD FERRIC GLUC 125 MG in IV NS 0.9% 100 ML IV SCH (14:55)
[2021-06-29] MEDS: APIXABAN 2.5 MG TABLET PO SCH (17:19)
[2021-06-29] MEDS: CLOPIDOGREL BISULFATE 75 MG TABLET PO SCH (17:19)
--- NOTE | 2021-06-29 19:15 | NUR ---
RN NOTES PT FOUND SEMI FOWLERS DISPLAYING NO S/S OF DISTRESS, FLACC = 0, RIKERS = 3, BILATERAL RISE AND FALL OF THE CHEST OBSERVED. RESIDUAL < 5ML. SOFT WRIST RESTRAINTS APPLIED, PULSES PALPATED BILATERALLY. JOHNSON CATH BELOW PATIENT DRAINING BY GRAVITY. R UA MIDLINE PATIENT AND INTACT. SBAR AND REPORT GIVEN TO WIRE STRETCHER, ALL QUESTIONS ANSWERED. SAFETY MEASURES IN PLACE, BED LOCKED AND IN LOWEST POSITION, SIDE RAILS UPX2, CALL LIGHT WITHIN REACH, BED ALARM ARMED. PT ENDORSED IN STABLE CONDITION, ALL QUESTIONS ANSWERED.
[2021-06-29] MEDS: CEFEPIME 2 GM in IV D5W 100 ML IV SCH (19:48)
--- NOTE | 2021-06-29 20:23 | NUR ---
PATIENT REC'D ORALLY INTUBATED WITH 7.0 ETT SECURED @ 23 CM LIPLINE ON [place] VENT WITH THE SETTING OF AC 20,VT 400, FIO2 60% AND PEEP 5. VENT ALARMS CHECKED + AUDIBLE. CUFF PRESSURE CHECKED BOAT DETAILER. ETT SECURE AND IN PROPER POSITION. SUCTIONED MODERATE AMOUNT OF BLOODY SECRETION . AMBU BAG AT THE [facility]. NO RESPIRATORY DISTRESS NOTED AT THIS TIME. WILL CONTINUE TO MONITOR T/O SHIFT.
[2021-06-29] MEDS: SENNOSIDES 8.6 MG TABLET PO SCH (21:56)
[2021-06-29] MEDS: QUETIAPINE FUMARATE 25 MG TABLET PO SCH (21:56)
[2021-06-29] MEDS: ATORVASTATIN 10 MG TABLET PO SCH (21:56)
--- NOTE | 2021-06-29 21:57 | NUR ---
ICU/ROLL OVER PRESS OPERATOR PT IS CURRENTLY INTUBATED AND SEDATED, THERE IS NO NEED FOR 2200 MEDICATION OF SEROQUEL. WILL RESUME WHEN PT IS NO LONGER INTUBATED
--- NOTE | 2021-06-29 22:45 | NUR ---
ICU/CERTIFIED PROCEDURAL CODER WAS TOLD BY LAB THAT THERE IS NO MISC. RESP. COVID TEST. THIS REQUIRED TO BE CHANGED OVER TO THE PCR NASAL SWAB. THIS ORDER WAS CARRIED OUT.
[2021-06-30] VITALS (61 sets, daily range): BP systolic 96–164; BP diastolic 35–75
--- NOTE | 2021-06-30 00:10 | NUR ---
ICU/DIRECTOR OF COLLECTIONS AND ARCHIVES LATE ENTRY- DAUGHTER CAME IN TO SEE THIS PT, WAS UNAWARE THAT MOTHER WAS BEING TESTED FOR COVID AGAIN. WAS VERY UPSET BY THIS. ASKED WHY SHE HAD NOT BEEN INFORMED. DAUGHTER HAD MANY QUESTIONS, WAS ABLE TO ANSWER SOME OF HER QUESTIONS BUT NOT ALL, DEFER DAUGHTER TO TALK WITH MD DURING DAY SHIFT.
[2021-06-30] MEDS: PROPOFOL 100 ML IV PRN ×5 (03:40→21:21)
--- NOTE | 2021-06-30 04:10 | NUR ---
ICU/COMMUNITY MENTAL HEALTH WORKER TUBE FEEDING WAS STARTED. WILL MONITOR THE RESIDUALS ON THIS.
[2021-06-30] MEDS: ALBUMIN 25% 25 GM in PREMIX 1 EA IV SCH (04:52)
[2021-06-30] MEDS: methylPREDNISolone SOD SUCC 40 MG/ML VIAL IV SCH ×3 (04:52→21:27)
[2021-06-30 05:09] LABS: BASOPHILS % (AUTO) 0.1 % (0.0-2.0); HEMATOCRIT 26 % (33-45); HEMOGLOBIN 8.6 g/dL (11.5-14.8); LYMPHOCYTES # (AUTO) 0.4 K/uL (0.8-4.8); LYMPHOCYTES % (AUTO) 4.6 % (20.0-44.0); MEAN CORPUSCULAR HGB CONC 34 g/dl (31.0-36.0); MEAN CORPUSCULAR VOLUME 86 fL (82-100); MONOCYTES # (AUTO) 0.2 K/uL (0.1-1.30); MONOCYTES % (AUTO) 2.8 % (2.0-12.0); NEUTROPHILS # (AUTO) 7.6 K/uL (1.8-8.9); NEUTROPHILS % (AUTO) 92.5 % (43.0-81.0); PLATELET COUNT (AUTO) 162 K/uL (150-450); RED BLOOD CELL COUNT(AUTO) 2.97 MIL/uL (4.0-5.2); WHITE BLOOD COUNT (AUTO) 8.3 K/uL (4.3-11.0)
[2021-06-30] MEDS: BLOOD SUGAR DIAGNOSTIC 1 EACH STRIP IN SCH ×4 (05:26→17:15)
[2021-06-30] MEDS: OSMOLITE 1.2 CAL 1,000 ML LIQUID GT PRN (05:26)
[2021-06-30 05:34] LABS: ALANINE AMINOTRANSFERASE 22 U/L (12-78); ALBUMIN 2.9 g/dL (3.4-5.0); ALKALINE PHOSPHATASE 35 U/L (46-116); ASPARTATE AMINOTRANSFERASE 18 U/L (15-37); BILIRUBIN,TOTAL 0.8 mg/dL (0.2-1.0); CALCIUM, SERUM 7.9 mg/dL (8.5-10.1); CARBON DIOXIDE 35 mmol/L (21-32); CHLORIDE 109 mmol/L (98-107); CREATININE 1.5 mg/dL (0.6-1.3); GLUCOSE 130 mg/dL (74-106); POTASSIUM 3.1 mmol/L (3.5-5.1); SODIUM SERUM 150 mmol/L (136-145); TOTAL PROTEIN, SERUM 5.4 g/dL (6.4-8.2); UREA NITROGEN, BLOOD 68 mg/dL (7-18)
--- NOTE | 2021-06-30 06:45 | NUR ---
ICU/DIRECTOR OF PRODUCT DEVELOPMENT WAS ABLE TO TITRATE LEVO OFF OF THE PT FOR NOW, FOR STABLE BP. WILL CONTINUE TO MONITOR THIS PT.
[2021-06-30] MEDS: IPRATROPIUM BROMIDE 14 GM INHALER (or 12.9 GM) IH SCH ×2 (07:35→13:44)
[2021-06-30 07:51] LABS: ABG BASE EXCESS 3.7 mmol/L; ABG OXYGEN SATURATION 88.1 % (92.0-98.5); ABG PCO2 39.8 mmHg (35.0-45.0); ABG PH 7.461 (7.350-7.450); ABG PO2 54.6 mmHg (75.0-100.0); AaDO2 329.4 mmHg; COHb 0.3 % (0.5-1.5); MetHb 0.3 % (0.0-1.5); O2Hb 87.6 % (94.0-97.0); SITE, ABG Right Radial; VENT MODE, BG AC 20 400 60% +5
[2021-06-30] MEDS: CLOTRIMAZOLE 1% 15 GM TUBE TP SCH ×2 (08:15→17:01)
[2021-06-30] MEDS: MUPIROCIN OINT 2% 22 GM TUBE NS SCH ×2 (08:15→21:33)
[2021-06-30] MEDS: CLOPIDOGREL BISULFATE 75 MG TABLET PO SCH (08:16)
[2021-06-30] MEDS: METOPROLOL TARTRATE 25 MG TABLET PO SCH ×2 (08:16→17:01)
[2021-06-30] MEDS: MONTELUKAST SODIUM (10MG) 10 MG TABLET PO SCH (08:16)
[2021-06-30] MEDS: BUMETANIDE INJ 0.25 MG/ML VIAL IV SCH ×2 (08:16→17:00)
[2021-06-30] MEDS: CEFEPIME 2 GM in IV D5W 100 ML IV SCH ×2 (08:16→21:21)
[2021-06-30] MEDS: INSULIN GLARGINE, 100 UNIT/ML CARTRIDGE SQ SCH ×2 (08:21→17:13)
[2021-06-30] MEDS: APIXABAN 2.5 MG TABLET PO SCH (08:22)
[2021-06-30] MEDS: ISOSORBIDE MONONITRATE (30MG) 30 MG TAB.SR.24H PO SCH (09:00)
[2021-06-30] MEDS: BENAZEPRIL HCL 20 MG TABLET PO SCH (09:00)
[2021-06-30] MEDS: DILTIAZEM HCL CD 240 MG PO SCH (09:00)
[2021-06-30] MEDS: RANOLAZINE 500 MG TAB.ER.12H PO SCH ×2 (09:00→17:00)
[2021-06-30] MEDS: POTASSIUM CHLORIDE 20 MEQ TAB.PRT.SR PO SCH (09:20)
--- NOTE | 2021-06-30 11:50 | NUR ---
RN NOTE RN STARTED TO TITRATE DIPROVAN DOWN FOR SEDATION VACATION. FROM 40 TO 15 MCG/KG/MIN, PT BECAME TACHYPNEIC, USING ABDOMINAL MUSCLES TO SILVA THE VENT. MAURY GARDNER ADVISED ENDING VACATION EARLY. RN WILL TITRATE UP
[2021-06-30] MEDS: DIGOXIN 0.125 MG TABLET PO SCH (12:33)
[2021-06-30] MEDS: INSULIN REGULAR, HUMAN 100 UNIT/ML 3 ML VIAL SQ PRN ×2 (12:52→17:42)
[2021-06-30] MEDS: VANCOMYCIN 1 GM in IV D5W 250ml IV SCH (13:31)
[2021-06-30] MEDS: SOD FERRIC GLUC 125 MG in IV NS 0.9% 100 ML IV SCH (14:47)
[2021-06-30] MEDS: IV 1/2NS 1000 ML 1,000 ML IV SCH (16:43)
--- NOTE | 2021-06-30 19:30 | NUR ---
RN NOTES PT FOUND SEMI FOWLERS DISPLAYING NO S/S OF DISTRESS, FLACC = 0, RIKERS = 3, BILATERAL RISE AND FALL OF THE CHEST OBSERVED. RESIDUAL < 5ML. SOFT WRIST RESTRAINTS APPLIED, PULSES PALPATED BILATERALLY. JOHNSON CATH BELOW PATIENT DRAINING BY GRAVITY. R UA MIDLINE PATIENT AND INTACT. SBAR AND REPORT GIVEN TO EMBROIDERY FINISHER RN, ALL QUESTIONS ANSWERED. SAFETY MEASURES IN PLACE, BED LOCKED AND IN LOWEST POSITION, SIDE RAILS UPX2, CALL LIGHT WITHIN REACH, BED ALARM ARMED. PT ENDORSED IN STABLE CONDITION FOR BINA.
[2021-06-30] MEDS: IPRATROPIUM NEB FS 0.5 MG/2.5 ML AMPUL.NEB NEB SCH (19:34)
--- NOTE | 2021-06-30 19:45 | NUR ---
RN NOTES RECEIVED PATIETN SEDATED WITH DIPRIVAN ORALLY INTUBATED WITH ETT 7 AND 23 CM AT LIPLINE CONNECTED TO VENT WITH VETN SETTING AC 20 TV 400 FIO2 60% AND PEEP 5 SUCTIONED NEEDED AND TOLERATED WELL SATURATION 98%. AFEBRILE. AFIB CONTROLLED ON MONITOR. IV SITE ON GISSEL MIDLINE WITH DIPRIVAN @ 40 MCG/KG/MIN TITRATED PROTOCOL ORDER. PATIENT HAS OGT F OSMOLITE @ 20 ML/HR INTACT AND PATENT. STRICTLY DROPLET PRECAUTION OBSERVED DUE TO PENDING PCR. BILATERALW WRIST RESTRAINT KEPT IN PLACED. TURN AND REPOSITION PATIENT PATIENT COMFORTABLE KEPT CLEAN AND DRY WILL CONTINUE TO MONITOR.
--- NOTE | 2021-06-30 20:30 | NUR ---
RN NOTES DAUGHTER VISITED THE PATIENT AND GIVE UPDATE ABOUT PT. STATUS. PER DAUGHTER SHE WANNA TALK TO THE DOCTOR IN THE MORNING. WILL ENDORSED TO AM SHIFT.
[2021-06-30] MEDS: QUETIAPINE FUMARATE 25 MG TABLET PO SCH (21:27)
[2021-06-30] MEDS: SENNOSIDES 8.6 MG TABLET PO SCH (21:27)
[2021-06-30] MEDS: ATORVASTATIN 10 MG TABLET PO SCH (21:27)
--- NOTE | 2021-06-30 21:33 | NUR ---
RN NOTES PATIENT SEROQUEL NOT GIVEN PATIENT HAS ETT AND ON SEDATION. WILL RESUME MEDICINE WHEN PATIENT IS OUT OF ETT.
[2021-07-01] VITALS (40 sets, daily range): BP systolic 95–147; BP diastolic 41–79
[2021-07-01] MEDS: INSULIN REGULAR, HUMAN 100 UNIT/ML 3 ML VIAL SQ PRN ×4 (00:08→17:22)
[2021-07-01] MEDS: BLOOD SUGAR DIAGNOSTIC 1 EACH STRIP IN SCH ×4 (00:12→17:00)
[2021-07-01] MEDS: IPRATROPIUM NEB FS 0.5 MG/2.5 ML AMPUL.NEB NEB SCH ×4 (01:29→19:25)
[2021-07-01] MEDS: PROPOFOL 100 ML IV PRN ×5 (02:30→18:27)
--- NOTE | 2021-07-01 04:06 | NUR ---
FIO2 TITRATED TO 50%. RN NOTIFIED.
[2021-07-01] MEDS: methylPREDNISolone SOD SUCC 40 MG/ML VIAL IV SCH ×3 (04:26→20:45)
[2021-07-01 04:47] LABS: BASOPHILS % (AUTO) 0.1 % (0.0-2.0); HEMATOCRIT 29 % (33-45); HEMOGLOBIN 9.6 g/dL (11.5-14.8); LYMPHOCYTES # (AUTO) 0.4 K/uL (0.8-4.8); LYMPHOCYTES % (AUTO) 3.5 % (20.0-44.0); MEAN CORPUSCULAR HGB CONC 33 g/dl (31.0-36.0); MEAN CORPUSCULAR VOLUME 87 fL (82-100); MONOCYTES # (AUTO) 0.3 K/uL (0.1-1.30); MONOCYTES % (AUTO) 2.6 % (2.0-12.0); NEUTROPHILS # (AUTO) 10.3 K/uL (1.8-8.9); NEUTROPHILS % (AUTO) 93.8 % (43.0-81.0); PLATELET COUNT (AUTO) 181 K/uL (150-450); RED BLOOD CELL COUNT(AUTO) 3.37 MIL/uL (4.0-5.2)
[2021-07-01 05:09] LABS: ALANINE AMINOTRANSFERASE 20 U/L (12-78); ALBUMIN 2.7 g/dL (3.4-5.0); ALKALINE PHOSPHATASE 42 U/L (46-116); ASPARTATE AMINOTRANSFERASE 20 U/L (15-37); BILIRUBIN,TOTAL 0.6 mg/dL (0.2-1.0); CALCIUM, SERUM 7.9 mg/dL (8.5-10.1); CARBON DIOXIDE 33 mmol/L (21-32); CHLORIDE 108 mmol/L (98-107); CREATININE 1.3 mg/dL (0.6-1.3); GLUCOSE 266 mg/dL (74-106); POTASSIUM 3.4 mmol/L (3.5-5.1); SODIUM SERUM 149 mmol/L (136-145); TOTAL PROTEIN, SERUM 5.2 g/dL (6.4-8.2); UREA NITROGEN, BLOOD 61 mg/dL (7-18)
--- NOTE | 2021-07-01 07:10 | NUR ---
RN NOTES PATIENT REMAINED STABLE FIO2 50% TOLERATED WELL. ETT AND VENT SETTING TOLERATED WELL. NO SIGNIFICANT CHANGES TROUGHOUT THE SHIFT. SEDATION CONITNUED PER PATIENT SEDATION LEVEL ACHIEVE TITRATED PROTOCOL ORDER. AFEBRILE. VSS. IVF CONTINEU KEPT PT CLEAN AND COMFORTABLE IN BED. WILL CONTINEU POC. ENDORSED CONTINUITY OFCARE TO AM NURSE.
--- NOTE | 2021-07-01 07:40 | NUR ---
ICU/RN PT IS INTUBATED ON THE VENT AC MODE .FIO2-50%. SAT O2-100%.SEDATED WITH DIPRIVAN.V/S STABLE,AFEBRILE. NO PAIN REPORTED AT THIS TIME.OG TUBE INFUSING WITH OSMOLITE . NO RESIDUAL NOTED.F/C IN PLACE DRAINING WITH YELLOW URINE.LABS REVIEW. NOTIFIED.NEW ORDERS RECEIVED.SUCTION PROVIDED. REPOSITION FOR COMFORT.
[2021-07-01 08:16] LABS: ABG BASE EXCESS 10.5 mmol/L; ABG OXYGEN SATURATION 94.9 % (92.0-98.5); ABG PCO2 50.1 mmHg (35.0-45.0); ABG PH 7.468 (7.350-7.450); ABG PO2 77.3 mmHg (75.0-100.0); AaDO2 222.8 mmHg; COHb 0.3 % (0.5-1.5); MetHb 0.3 % (0.0-1.5); O2Hb 94.3 % (94.0-97.0); PEEP,BG 10 cm H2O; SITE, ABG Right Radial; VT, ABG 400 mL
[2021-07-01] MEDS: CEFEPIME 2 GM in IV D5W 100 ML IV SCH ×2 (08:20→21:17)
[2021-07-01] MEDS: DILTIAZEM HCL CD 240 MG PO SCH (08:21)
[2021-07-01] MEDS: POTASSIUM CHLORIDE 20 MEQ TAB.PRT.SR PO SCH (08:21)
[2021-07-01] MEDS: RANOLAZINE 500 MG TAB.ER.12H PO SCH ×2 (08:21→16:58)
[2021-07-01] MEDS: BUMETANIDE INJ 0.25 MG/ML VIAL IV SCH ×2 (08:21→16:58)
[2021-07-01] MEDS: BENAZEPRIL HCL 20 MG TABLET PO SCH (08:22)
[2021-07-01] MEDS: MONTELUKAST SODIUM (10MG) 10 MG TABLET PO SCH (08:22)
[2021-07-01] MEDS: ISOSORBIDE MONONITRATE (30MG) 30 MG TAB.SR.24H PO SCH (08:23)
[2021-07-01] MEDS: CLOPIDOGREL BISULFATE 75 MG TABLET PO SCH (08:23)
[2021-07-01] MEDS: METOPROLOL TARTRATE 25 MG TABLET PO SCH ×2 (08:23→16:58)
[2021-07-01] MEDS: MUPIROCIN OINT 2% 22 GM TUBE NS SCH ×2 (08:24→20:46)
[2021-07-01] MEDS: CLOTRIMAZOLE 1% 15 GM TUBE TP SCH ×2 (08:25→17:00)
[2021-07-01] MEDS: INSULIN GLARGINE, 100 UNIT/ML CARTRIDGE SQ SCH ×2 (08:40→17:21)
--- NOTE | 2021-07-01 09:05 | NUR ---
ICU/RN DUE MEDS ARE GIVEN ORDERED.
[2021-07-01] MEDS: OSMOLITE 1.2 CAL 1,000 ML LIQUID GT PRN (11:06)
[2021-07-01] MEDS: IV 1/2NS 1000 ML 1,000 ML IV SCH (11:10)
[2021-07-01] MEDS: DIGOXIN 0.125 MG TABLET PO SCH (12:28)
[2021-07-01] MEDS: VANCOMYCIN 1 GM in IV D5W 250ml IV SCH (13:23)
[2021-07-01] MEDS: SOD FERRIC GLUC 125 MG in IV NS 0.9% 100 ML IV SCH (15:06)
--- NOTE | 2021-07-01 17:26 | NUR ---
ICU/RN PM CARE PROVIDED.DUE MEDS ARE GIVEN ORDERED.WOUND DRESSING DONE ORDERED.REDNESS ON [place] AREA AND LOWER BACK NOTED.SACRAL WOUND COVERED WITH MEPILEX.SUCTION PROVIDED.REPOSITION FOR COMFORT.CONTINUE MONITORING.
[2021-07-01] MEDS: IV NS 0.9% 250 ML IV PRN (18:57)
--- NOTE | 2021-07-01 20:00 | NUR ---
ICU NOTES Received patient sedated and intubated to mechanical vent on full vent support. Afib controlled per monitor 70's-80's.VSS.OGT feeding Osmolyte in progress.Maintained aspiration precaution with HOB elevated.No residual noted.FC to gravity.Diprivan gtt infusing at 35 mcg via JANIYA ML site intact.Turned and repositioned.No acute distress noted.
--- NOTE | 2021-07-01 20:11 | NUR ---
RECEIVED PT INTUBATED 7.0 ETT SECURED AT 23CM LIP LINE. NO RESP DISTRESS NOTED. PT TOLERATING VENT SETTINGS. SX'D SMALL AMT OF THIN TINGED SECRETIONS. VENT ALARMS SET AND AUDIBLE. CONTINUE TO MONITOR. Addendum: 07/01/21 at 2013 by LUCIANA AVILA RT Amended: Links added.
[2021-07-01] MEDS: SENNOSIDES 8.6 MG TABLET PO SCH (22:11)
[2021-07-01] MEDS: QUETIAPINE FUMARATE 25 MG TABLET PO SCH (22:11)
[2021-07-01] MEDS: ATORVASTATIN 10 MG TABLET PO SCH (22:11)
[2021-07-02] VITALS (40 sets, daily range): BP systolic 80–150; BP diastolic 37–77
[2021-07-02] MEDS: INSULIN REGULAR, HUMAN 100 UNIT/ML 3 ML VIAL SQ PRN ×5 (00:01→23:44)
[2021-07-02] MEDS: PROPOFOL 100 ML IV PRN ×6 (00:02→20:40)
[2021-07-02] MEDS: IPRATROPIUM NEB FS 0.5 MG/2.5 ML AMPUL.NEB NEB SCH ×4 (01:21→19:30)
--- NOTE | 2021-07-02 02:00 | NUR ---
ICU NOTES Patient remains sedated.Bed bath rendered.Complete linens changed.Had large loose brown BM.Kept clean and dry.Turned and repositioned.NAD.
[2021-07-02] MEDS: methylPREDNISolone SOD SUCC 40 MG/ML VIAL IV SCH ×3 (04:50→20:30)
[2021-07-02 06:03] LABS: ALBUMIN 2.6 g/dL (3.4-5.0); BILIRUBIN,TOTAL 0.7 mg/dL (0.2-1.0); CALCIUM, SERUM 7.9 mg/dL (8.5-10.1); CREATININE 1.2 mg/dL (0.6-1.3); POTASSIUM 3.8 mmol/L (3.5-5.1); TOTAL PROTEIN, SERUM 5.1 g/dL (6.4-8.2)
[2021-07-02] MEDS: BLOOD SUGAR DIAGNOSTIC 1 EACH STRIP IN SCH ×5 (06:26→23:41)
--- NOTE | 2021-07-02 06:40 | NUR ---
ICU NOTES Patient vss remains stable.Tolerating tube feeding well.All due medications administered. FSBS monitored coverage given per sliding scale.Turned and repositioned q 2 hrs offloading pressure points.No significant change noted during the shift.Will endorse to day shift for BINA.
--- NOTE | 2021-07-02 07:40 | NUR ---
ICU/RN PT IS INTUBATED ON THE VENT ,AC MODE.FIO2-50%,PEEP-10.SAT O2-100%.SEDATED WITH DIPRIVAN .V/S STABLE AFEBRILE.NO PAIN REPORTED AT THIS TIME.RIGHT UPPER ARM MID LINE.OG TUBE INFUSING WITH OSMOLITE AT 20 ML/HR. NO RESIDUAL NOTED.F/C IN PLACE DRAINING WITH YELLOW URINE.PEDAL EDEMA PRESENT.MULTIPLY BRUISES NOTED ALL OVER THE BODY.REDNESS ON SIENNA AREA NOTED. SACRAL WOUND COVERED WITH MEPILEX.SUCTION PROVIDED.REPOSITION FOR COMFORT.LABS REVIEW. NOTIFIED.
[2021-07-02] MEDS: CEFEPIME 2 GM in IV D5W 100 ML IV SCH ×2 (08:24→20:30)
[2021-07-02] MEDS: ISOSORBIDE MONONITRATE (30MG) 30 MG TAB.SR.24H PO SCH (08:25)
[2021-07-02] MEDS: MUPIROCIN OINT 2% 22 GM TUBE NS SCH ×2 (08:25→20:31)
[2021-07-02] MEDS: MONTELUKAST SODIUM (10MG) 10 MG TABLET PO SCH (08:25)
[2021-07-02] MEDS: METOPROLOL TARTRATE 25 MG TABLET PO SCH ×2 (08:25→16:08)
[2021-07-02] MEDS: BUMETANIDE INJ 0.25 MG/ML VIAL IV SCH ×2 (08:25→16:08)
[2021-07-02] MEDS: RANOLAZINE 500 MG TAB.ER.12H PO SCH ×2 (08:26→16:08)
[2021-07-02] MEDS: POTASSIUM CHLORIDE 20 MEQ TAB.PRT.SR PO SCH (08:26)
[2021-07-02] MEDS: BENAZEPRIL HCL 20 MG TABLET PO SCH (08:26)
[2021-07-02] MEDS: CLOPIDOGREL BISULFATE 75 MG TABLET PO SCH (08:26)
[2021-07-02] MEDS: DILTIAZEM HCL CD 240 MG PO SCH (08:26)
[2021-07-02] MEDS: CLOTRIMAZOLE 1% 15 GM TUBE TP SCH ×2 (08:27→16:09)
[2021-07-02] MEDS: INSULIN GLARGINE, 100 UNIT/ML CARTRIDGE SQ SCH ×2 (08:28→17:39)
[2021-07-02 08:34] LABS: BASOPHILS % (AUTO) 0.3 % (0.0-2.0); EOSINOPHILS % (AUTO) 0.3 % (0.0-6.0); HEMATOCRIT 30 % (33-45); HEMOGLOBIN 9.7 g/dL (11.5-14.8); LYMPHOCYTES # (AUTO) 0.3 K/uL (0.8-4.8); LYMPHOCYTES % (AUTO) 3.5 % (20.0-44.0); MEAN CORPUSCULAR HGB CONC 33 g/dl (31.0-36.0); MEAN CORPUSCULAR VOLUME 87 fL (82-100); MONOCYTES # (AUTO) 0.2 K/uL (0.1-1.30); MONOCYTES % (AUTO) 2.2 % (2.0-12.0); NEUTROPHILS # (AUTO) 9.4 K/uL (1.8-8.9); NEUTROPHILS % (AUTO) 93.7 % (43.0-81.0); PLATELET COUNT (AUTO) 165 K/uL (150-450)
[2021-07-02 08:37] LABS: ABG BASE EXCESS 7.3 mmol/L; ABG OXYGEN SATURATION 96.1 % (92.0-98.5); ABG PCO2 44.4 mmHg (35.0-45.0); ABG PH 7.472 (7.350-7.450); AaDO2 218.6 mmHg; COHb 0.1 % (0.5-1.5); MetHb 0.3 % (0.0-1.5); O2Hb 95.7 % (94.0-97.0); PEEP,BG 10 cm H2O; SITE, ABG Right Radial; VT, ABG 400 mL
--- NOTE | 2021-07-02 09:00 | NUR ---
ICU/RN DUE MEDS ARE GIVEN ORDERED.
[2021-07-02] MEDS: IV NS 0.9% 250 ML IV PRN (10:04)
--- NOTE | 2021-07-02 10:32 | NUR ---
ICU/RN SEDATION VACATION PROVIDED.PT IS AWAKE,ALERT.FOLLOWS COMMANDS.STILL ON HIGH PEEP-10. UNABLE TO BE WEAN OFF VENTILATOR AT THIS TIME.CONTINUE MONITORING.
[2021-07-02] MEDS: DIGOXIN 0.125 MG TABLET PO SCH (12:57)
[2021-07-02] MEDS: VANCOMYCIN 1 GM in IV D5W 250ml IV SCH (12:57)
[2021-07-02] MEDS: SOD FERRIC GLUC 125 MG in IV NS 0.9% 100 ML IV SCH (14:43)
[2021-07-02] MEDS: OSMOLITE 1.2 CAL 1,000 ML LIQUID GT PRN (15:36)
--- NOTE | 2021-07-02 18:00 | NUR ---
ICU/RN PM CARE PROVIDED.DUE MEDS ARE GIVEN ORDERED.V/S STABLE,AFEBRILE.CONTINUE MONITORING.
--- NOTE | 2021-07-02 19:34 | NUR ---
TX NOT GIVEN AT THIS TIME DUE TO PENDING PCR RESULTS. SHALONDA TAVAREZ.
--- NOTE | 2021-07-02 19:54 | NUR ---
CHANGED PEEP TO +5 FROM +10 DUE TO LOW BP. PT SP02 IS AT 98%. RN AWARE. WILL CONT TO MONITOR.
--- NOTE | 2021-07-02 20:00 | NUR ---
ICU NOTES Received patient intubated to mechanical vent on full vent support.PEEP changed to 5 by RT due to low BP.Sedated on Diprivan gtt at 35 mcg via GISSEL ML.Site intact.Tube feeding in progress.No residual noted.Maintain on aspiration precaution with HOB elevated.No acute distress noted.Afib controlled 70's.FC to gravity drainage.Turned and repositioned to comfort.Continue monitoring.
[2021-07-02] MEDS: QUETIAPINE FUMARATE 25 MG TABLET PO SCH (21:17)
[2021-07-02] MEDS: ATORVASTATIN 10 MG TABLET PO SCH (21:17)
[2021-07-02] MEDS: SENNOSIDES 8.6 MG TABLET PO SCH (21:17)
[2021-07-03] VITALS (26 sets, daily range): BP systolic 93–156; BP diastolic 41–78
[2021-07-03] MEDS: IPRATROPIUM NEB FS 0.5 MG/2.5 ML AMPUL.NEB NEB SCH ×4 (01:30→19:30)
--- NOTE | 2021-07-03 02:00 | NUR ---
ICU NOTES. Patient resting.Incontinent of loose stools.Perineal care and bed bath done.Complete linens changed.Turned and repositioned to comfort.No distress noted.VSS.
[2021-07-03] MEDS: PROPOFOL 100 ML IV PRN ×5 (02:06→20:19)
--- NOTE | 2021-07-03 03:41 | NUR ---
TITRATED FI02 DOWN TO 40%. RN AWARE
[2021-07-03] MEDS: IV NS 0.9% 250 ML IV PRN (03:57)
[2021-07-03] MEDS: methylPREDNISolone SOD SUCC 40 MG/ML VIAL IV SCH ×3 (04:45→21:40)
[2021-07-03 05:32] LABS: BASOPHILS % (AUTO) 0.3 % (0.0-2.0); HEMATOCRIT 29 % (33-45); HEMOGLOBIN 9.4 g/dL (11.5-14.8); LYMPHOCYTES # (AUTO) 0.4 K/uL (0.8-4.8); LYMPHOCYTES % (AUTO) 4.2 % (20.0-44.0); MEAN CORPUSCULAR HGB CONC 33 g/dl (31.0-36.0); MEAN CORPUSCULAR VOLUME 87 fL (82-100); MONOCYTES # (AUTO) 0.3 K/uL (0.1-1.30); MONOCYTES % (AUTO) 2.9 % (2.0-12.0); NEUTROPHILS # (AUTO) 9.6 K/uL (1.8-8.9); NEUTROPHILS % (AUTO) 92.6 % (43.0-81.0); PLATELET COUNT (AUTO) 203 K/uL (150-450); RED BLOOD CELL COUNT(AUTO) 3.31 MIL/uL (4.0-5.2); WHITE BLOOD COUNT (AUTO) 10.4 K/uL (4.3-11.0)
[2021-07-03 05:37] LABS: ALANINE AMINOTRANSFERASE 21 U/L (12-78); ALBUMIN 2.5 g/dL (3.4-5.0); ALKALINE PHOSPHATASE 39 U/L (46-116); ASPARTATE AMINOTRANSFERASE 18 U/L (15-37); BILIRUBIN,TOTAL 0.6 mg/dL (0.2-1.0); CARBON DIOXIDE 31 mmol/L (21-32); CHLORIDE 106 mmol/L (98-107); CREATININE 1.5 mg/dL (0.6-1.3); GLUCOSE 276 mg/dL (74-106); POTASSIUM 4.1 mmol/L (3.5-5.1); SODIUM SERUM 143 mmol/L (136-145); UREA NITROGEN, BLOOD 71 mg/dL (7-18)
[2021-07-03] MEDS: BLOOD SUGAR DIAGNOSTIC 1 EACH STRIP IN SCH ×4 (05:54→23:27)
[2021-07-03] MEDS: INSULIN REGULAR, HUMAN 100 UNIT/ML 3 ML VIAL SQ PRN ×4 (05:56→23:30)
--- NOTE | 2021-07-03 06:30 | NUR ---
ICU NOTES Patient remains sedated.VSS.Afib controlled.Tolerating vent settings SPO2 97%-100% during the night.FIO2 titrated down to 40% by RT.Tolerating well.Tube feeding well tolerated no residual noted.All due medications administered.Turned and repostioned to comfort.No acute distress noted.
--- NOTE | 2021-07-03 07:10 | NUR ---
ICU OPENING NOTES RECEIVED PT INTUBATED, ON MECH VENT. SETTINGS: AC 20, FIO2 40%, PEEP 5. O2 SAT@100%. SEDATED WITH DIPRIVAN @35MCG/KG/MIN. GISSEL MIDLINE INTACT, PATENT AND FLUSHED. OG TUBE IN PLACE, WITH OSMOLITE @20 ML/HR. NO RESIDUAL NOTED. JOHNSON CATH IN PLACE DRAINING WITH YELLOW URINE. PEDAL EDEMA PRESENT. MULTIPLE BRUISES NOTED ALL OVER THE BODY. SAFETY MEASURES IN PLACE. BED LOCKED AND IN LOWEST POSITION. WILL CONTINUE TO MONITOR.
--- NOTE | 2021-07-03 08:25 | NUR ---
RT PATIENT REC'D ORALLY INTUBATED ON [facility] V[facility] WITH ORDERED SETTINGS. ETT SECURE AND IN PROPER POSITION. REINIERU BAG AT HOB. Addendum: 07/03/21 at 1636 by MARIANO SALTER RT Amended: Links added.
[2021-07-03] MEDS: CEFEPIME 2 GM in IV D5W 100 ML IV SCH ×2 (08:26→21:40)
[2021-07-03] MEDS: BUMETANIDE INJ 0.25 MG/ML VIAL IV SCH (08:26)
[2021-07-03] MEDS: MUPIROCIN OINT 2% 22 GM TUBE NS SCH ×2 (08:26→21:49)
[2021-07-03] MEDS: CLOTRIMAZOLE 1% 15 GM TUBE TP SCH ×2 (08:27→17:10)
[2021-07-03] MEDS: ISOSORBIDE MONONITRATE (30MG) 30 MG TAB.SR.24H PO SCH (08:31)
[2021-07-03] MEDS: DILTIAZEM HCL CD 240 MG PO SCH (08:31)
[2021-07-03] MEDS: MONTELUKAST SODIUM (10MG) 10 MG TABLET PO SCH (08:31)
[2021-07-03] MEDS: RANOLAZINE 500 MG TAB.ER.12H PO SCH ×2 (08:31→17:04)
[2021-07-03] MEDS: METOPROLOL TARTRATE 25 MG TABLET PO SCH ×2 (08:32→17:04)
[2021-07-03] MEDS: BENAZEPRIL HCL 20 MG TABLET PO SCH (08:32)
[2021-07-03] MEDS: INSULIN GLARGINE, 100 UNIT/ML CARTRIDGE SQ SCH ×2 (08:35→17:09)
[2021-07-03] MEDS: DIGOXIN 0.125 MG TABLET PO SCH (12:58)
[2021-07-03] MEDS ORDERED: VANCOMYCIN 1.25 GM in IV D5W 250 ML IV SCH (13:00)
[2021-07-03] MEDS: OSMOLITE 1.2 CAL 1,000 ML LIQUID GT PRN (17:24)
--- NOTE | 2021-07-03 19:18 | NUR ---
RN NOTES NO SIGNIFICANT CHANGES THROUGHOUT THE SHIFT. TOLERATING VENT SETTINGS WELL. ALL DUE MEDS GIVEN. NEEDS ATTENDED. KEPT CLEAN AND COMFORTABLE. ENDORSED TO NIGHT RN FOR BINA.
--- NOTE | 2021-07-03 19:40 | NUR ---
RN NOTE PATIENT IS INTUBATED, ON [facility] V[facility]. SETTINGS AC 20, FIO2 40%, PEEP 5. O2 SAT@100%, TOLERATING WELL. SEDATED WITH DIPRIVAN @35MCG/KG/MIN. GISSEL MIDLINE INTACT, PATENT AND FLUSHED. OG TUBE IN PLACE, WITH OSMOLITE @20 ML/HR. NO RESIDUAL NOTED. JOHNSON CATH IN PLACE DRAINING WITH YELLOW URINE VIA GRAVITY. SAFETY MEASURES IN PLACE. BED LOCKED AND IN LOWEST POSITION. WILL CONTINUE TO MONITOR.
[2021-07-03] MEDS: SENNOSIDES 8.6 MG TABLET PO SCH (21:40)
[2021-07-03] MEDS: ATORVASTATIN 10 MG TABLET PO SCH (21:40)
[2021-07-03] MEDS: QUETIAPINE FUMARATE 25 MG TABLET PO SCH (21:40)
[2021-07-04] VITALS (31 sets, daily range): BP systolic 102–166; BP diastolic 50–83
[2021-07-04] MEDS: IPRATROPIUM NEB FS 0.5 MG/2.5 ML AMPUL.NEB NEB SCH ×4 (01:30→19:57)
[2021-07-04] MEDS: PROPOFOL 100 ML IV PRN ×3 (02:16→17:58)
--- NOTE | 2021-07-04 03:59 | NUR ---
RN NOTE PATIENT IN BED RESTING. NOTED WITH X1 LOOSE/SOFT BROWN STOOLS. PERINEAL CARE DONE, BED BATH GIVEN AND TOLERATED WELL. TURNED AND REPOSITIONED. VITAL SIGNS STABLE.
[2021-07-04 05:33] LABS: ALANINE AMINOTRANSFERASE 23 U/L (12-78); ALBUMIN 2.5 g/dL (3.4-5.0); ALKALINE PHOSPHATASE 42 U/L (46-116); ASPARTATE AMINOTRANSFERASE 25 U/L (15-37); BILIRUBIN,TOTAL 0.6 mg/dL (0.2-1.0); CALCIUM, SERUM 8.2 mg/dL (8.5-10.1); CARBON DIOXIDE 30 mmol/L (21-32); CHLORIDE 106 mmol/L (98-107); CREATININE 1.4 mg/dL (0.6-1.3); GLUCOSE 206 mg/dL (74-106); SODIUM SERUM 142 mmol/L (136-145); TOTAL PROTEIN, SERUM 5.1 g/dL (6.4-8.2); UREA NITROGEN, BLOOD 71 mg/dL (7-18)
[2021-07-04 05:34] LABS: BASOPHILS % (AUTO) 0.1 % (0.0-2.0); HEMATOCRIT 31 % (33-45); HEMOGLOBIN 10.5 g/dL (11.5-14.8); LYMPHOCYTES # (AUTO) 0.4 K/uL (0.8-4.8); LYMPHOCYTES % (AUTO) 3.6 % (20.0-44.0); MEAN CORPUSCULAR HGB CONC 33 g/dl (31.0-36.0); MEAN CORPUSCULAR VOLUME 86 fL (82-100); MONOCYTES # (AUTO) 0.4 K/uL (0.1-1.30); MONOCYTES % (AUTO) 4.1 % (2.0-12.0); NEUTROPHILS % (AUTO) 92.2 % (43.0-81.0); PLATELET COUNT (AUTO) 247 K/uL (150-450); RED BLOOD CELL COUNT(AUTO) 3.65 MIL/uL (4.0-5.2); WHITE BLOOD COUNT (AUTO) 10.9 K/uL (4.3-11.0)
[2021-07-04] MEDS: BLOOD SUGAR DIAGNOSTIC 1 EACH STRIP IN SCH ×4 (05:51→23:17)
[2021-07-04] MEDS: INSULIN REGULAR, HUMAN 100 UNIT/ML 3 ML VIAL SQ PRN ×4 (05:54→23:16)
[2021-07-04] MEDS: methylPREDNISolone SOD SUCC 40 MG/ML VIAL IV SCH ×3 (05:54→21:23)
--- NOTE | 2021-07-04 07:18 | NUR ---
RN NOTE PATIENT IS INTUBATED, ON MECH VENT. SETTINGS AC 20, FIO2 40%, PEEP 5. O2 SAT@100%, TOLERATING WELL. SEDATED WITH DIPRIVAN @35MCG/KG/MIN. GISSEL MIDLINE INTACT, PATENT AND FLUSHED. OG TUBE IN PLACE, WITH OSMOLITE @20 ML/HR. NO RESIDUAL NOTED. JOHNSON CATH IN PLACE DRAINING WITH YELLOW URINE OUTPUT 500CC. TURNED AND REPOSITIONED. KEPT CLEAN AND DRY. SAFETY MEASURES IN PLACE. BED LOCKED AND IN LOWEST POSITION. ENDORSED TO AM SHIFT.
--- NOTE | 2021-07-04 07:45 | NUR ---
OVEN HEATER OPENING NOTE PATIENT IS INTUBATED, ON [facility] VENT.ETT 02/04 ,TOLERATING SETTINGS WELL.SAT@100%, SEDATED WITH DIPRIVAN @35MCG/KG/MIN. GISSEL MIDLINE INTACT, PATENT AND FLUSHED. OG TUBE IN PLACE, WITH OSMOLITE @20 ML/HR. JOHNSON CATH IN PLACE DRAINING WITH YELLOW URINE OUTPUT . SAFETY AND ASPIRATION MEASURES IN PLACE.BED IS LOW AND IN LOCKED POSITION.CALL LIGHT IN REACH.BED ALARM IS ON.RESTRAINTS IS ON.SRX3.WILL CONTINUE TO MONITOR.
[2021-07-04 08:44] LABS: LYMPHOCYTES % (MANUAL) 6 % (16-48); MONOCYTES % (MANUAL) 4 % (0-11.0); NEUTROPHILS % (MANUAL) 90 (42-76)
[2021-07-04] MEDS: CEFEPIME 2 GM in IV D5W 100 ML IV SCH ×2 (08:51→21:23)
[2021-07-04] MEDS: BENAZEPRIL HCL 20 MG TABLET PO SCH (08:52)
[2021-07-04] MEDS: MONTELUKAST SODIUM (10MG) 10 MG TABLET PO SCH (08:52)
[2021-07-04] MEDS: METOPROLOL TARTRATE 25 MG TABLET PO SCH ×2 (08:53→17:41)
[2021-07-04] MEDS: DILTIAZEM HCL CD 240 MG PO SCH (09:00)
[2021-07-04] MEDS: ISOSORBIDE MONONITRATE (30MG) 30 MG TAB.SR.24H PO SCH (09:00)
[2021-07-04] MEDS: RANOLAZINE 500 MG TAB.ER.12H PO SCH ×2 (09:00→17:00)
[2021-07-04] MEDS: MUPIROCIN OINT 2% 22 GM TUBE NS SCH ×2 (09:23→21:25)
[2021-07-04] MEDS: INSULIN GLARGINE, 100 UNIT/ML CARTRIDGE SQ SCH ×2 (09:25→17:46)
[2021-07-04] MEDS: CLOTRIMAZOLE 1% 15 GM TUBE TP SCH ×2 (09:26→17:42)
--- NOTE | 2021-07-04 09:58 | NUR ---
MELTER SUPERVISOR OPEN HEARTH FURNACE NOTE CALL MADE TO PHARMACY REGARDING MEDICATIONS 5THAT CANNOT BE CRUSHED,(JENN PATE CD,IMDUR),SPOKE TO PHARMACIST PATIENT IS INTUBATED AND HAVE OG TUBE.,TOLD THAT SHE WILL CALL BACK AFTER TALK TO .RECEIVED CALL AFTER TOLD THAT TO HOLD MEDICATIONS THAT CANNOT BE CRUSHED,CHARGE NURSE MADE AWARE,HOLD THE MEDS.SEEN BY ,OK TO DO SEDATION VACATION.IF PATIENT INTERACTIVE CHANGE TO SIMV MODE AND ABG IN 1 HR.PATIENT NOT TOLERATING SEDATION VACATION.HR 133-120,O2 SAT 98%.RR 32.RT MADE AWARE. MADE AWARE.OK TO CONTINUE WITH PROPOFOL IN DOSE OF 20MCG.
[2021-07-04] MEDS ORDERED: BUMETANIDE INJ 8 MG in IV NS 0.9% 48 ML IV ONE (11:00)
[2021-07-04] MEDS: DIGOXIN 0.125 MG TABLET PO SCH (12:12)
[2021-07-04] MEDS ORDERED: hydrALAZINE HCL IV 20 MG VIAL IV PRN (16:00)
--- NOTE | 2021-07-04 19:39 | NUR ---
ENDORSED TO PM NURSE FOR BINA.PATIENT IS INTUBATED.TOLERATING VENT SETTINGS WELL .ON DIPRIVAN.ALL NEEDS MET.SAFETY AND ASPIRATION MEASURES IN PLACE.
--- NOTE | 2021-07-04 19:57 | NUR ---
RT Pt received orally intubated w/ 7.0 ETT secured at 23cm at the lip line on [facility] vent on settings AC mode, RR 20, VT 400, FIO2 30%, PEEP +5. Airway patent and secured. DIRECTOR OF RECRUITMENT done. Pt suctioned. Alarms set and audible. Ambubag at bedside. Vent plugged into red outlet. Will cont to monitor. Addendum: 07/04/21 at 2026 by ANKIT FARRAR RT Amended: Links added.
--- NOTE | 2021-07-04 20:05 | NUR ---
RN NOTE PATIENT IS INTUBATED, ON MECH VENT TOLERATING SETTINGS WELL. SEDATED WITH DIPRIVAN @20MCG/KG/MIN. GISSEL MIDLINE INTACT, PATENT AND FLUSHED. OG TUBE IN PLACE, WITH OSMOLITE @20 ML/HR. NO RESIDUAL NOTED. JOHNSON CATH IN PLACE DRAINING WITH YELLOW URINE VIA GRAVITY. TURNED AND REPOSITIONED. SAFETY MEASURES IN PLACE. BED LOCKED AND IN LOWEST POSITION. WILL CONTINUE TO MONITOR.
[2021-07-04] MEDS: SENNOSIDES 8.6 MG TABLET PO SCH (21:23)
[2021-07-04] MEDS: ATORVASTATIN 10 MG TABLET PO SCH (21:23)
[2021-07-04] MEDS: QUETIAPINE FUMARATE 25 MG TABLET PO SCH (21:23)
[2021-07-05] VITALS (34 sets, daily range): BP systolic 90–162; BP diastolic 41–86
[2021-07-05] MEDS: IPRATROPIUM NEB FS 0.5 MG/2.5 ML AMPUL.NEB NEB SCH ×4 (01:58→19:54)
[2021-07-05] MEDS: PROPOFOL 100 ML IV PRN ×3 (02:01→20:32)
[2021-07-05 05:04] LABS: BASOPHILS # (AUTO) 0.1 K/uL (0.0-0.2); BASOPHILS % (AUTO) 0.5 % (0.0-2.0); HEMATOCRIT 36 % (33-45); HEMOGLOBIN 11.7 g/dL (11.5-14.8); LYMPHOCYTES # (AUTO) 1.1 K/uL (0.8-4.8); LYMPHOCYTES % (AUTO) 6.3 % (20.0-44.0); MEAN CORPUSCULAR HGB CONC 32 g/dl (31.0-36.0); MEAN CORPUSCULAR VOLUME 86 fL (82-100); MONOCYTES # (AUTO) 1.1 K/uL (0.1-1.30); MONOCYTES % (AUTO) 6.4 % (2.0-12.0); NEUTROPHILS # (AUTO) 15.6 K/uL (1.8-8.9); NEUTROPHILS % (AUTO) 86.8 % (43.0-81.0); PLATELET COUNT (AUTO) 307 K/uL (150-450); RED BLOOD CELL COUNT(AUTO) 4.21 MIL/uL (4.0-5.2)
[2021-07-05 05:07] LABS: ALANINE AMINOTRANSFERASE 26 U/L (12-78); ALBUMIN 2.6 g/dL (3.4-5.0); ALKALINE PHOSPHATASE 55 U/L (46-116); ASPARTATE AMINOTRANSFERASE 32 U/L (15-37); BILIRUBIN,TOTAL 0.7 mg/dL (0.2-1.0); CALCIUM, SERUM 8.2 mg/dL (8.5-10.1); CARBON DIOXIDE 31 mmol/L (21-32); CHLORIDE 104 mmol/L (98-107); CREATININE 1.6 mg/dL (0.6-1.3); GLUCOSE 171 mg/dL (74-106); POTASSIUM 3.7 mmol/L (3.5-5.1); SODIUM SERUM 143 mmol/L (136-145); TOTAL PROTEIN, SERUM 5.6 g/dL (6.4-8.2); UREA NITROGEN, BLOOD 77 mg/dL (7-18)
[2021-07-05] MEDS: BLOOD SUGAR DIAGNOSTIC 1 EACH STRIP IN SCH ×4 (05:33→23:12)
[2021-07-05] MEDS: methylPREDNISolone SOD SUCC 40 MG/ML VIAL IV SCH ×3 (05:33→21:01)
[2021-07-05] MEDS: INSULIN REGULAR, HUMAN 100 UNIT/ML 3 ML VIAL SQ PRN ×4 (05:37→23:13)
--- NOTE | 2021-07-05 07:10 | NUR ---
RN NOTE RECEIVING PT ON BED , INTUBATED, SEDATED , ON DIPRIVAN AT 20MCG/KG/MIN, ON MECH VENT TOLERATING SETTINGS WELL. R UA MIDLINE SITE , CLEAN ,DRY AND INTACT, PATENT AND FLUSHED. OG TUBE IN PLACE, WITH OSMOLITE @20 ML/HR. NO RESIDUAL NOTED. JOHNSON CATH IN PLACE DRAINING WITH YELLOW URINE VIA GRAVITY. TURNED AND REPOSITIONED. SAFETY MEASURES IN PLACE. BED LOCKED AND IN LOWEST POSITION. WILL CONTINUE TO MONITOR.
--- NOTE | 2021-07-05 07:15 | NUR ---
RN NOTE PATIENT IS INTUBATED, ON MECH VENT TOLERATING SETTINGS WELL. SEDATED WITH DIPRIVAN @20MCG/KG/MIN. GISSEL MIDLINE INTACT, PATENT AND FLUSHED. OG TUBE IN PLACE, WITH OSMOLITE @20 ML/HR. NO RESIDUAL NOTED. JOHNSON CATH IN PLACE OUTPUT [id number]. NOTED WITH X1 BM. KEPT CLEAN AND DRY. TOLERATED BED BATH WELL. TURNED AND REPOSITIONED. SAFETY MEASURES IN PLACE. BED LOCKED AND IN LOWEST POSITION. ENDORSED TO AM SHIFT.
[2021-07-05 08:06] LABS: LYMPHOCYTES % (MANUAL) 6 % (16-48); METAMYELOCYTES % 1 % (0-0); MONOCYTES % (MANUAL) 10 % (0-11.0); MYELOCYTES % 4 % (0-0); NEUTROPHILS % (MANUAL) 79 (42-76)
[2021-07-05] MEDS: CEFEPIME 2 GM in IV D5W 100 ML IV SCH ×2 (08:31→21:00)
[2021-07-05] MEDS: BENAZEPRIL HCL 20 MG TABLET PO SCH (08:35)
[2021-07-05] MEDS: METOPROLOL TARTRATE 25 MG TABLET PO SCH ×2 (08:35→17:03)
[2021-07-05] MEDS: MONTELUKAST SODIUM (10MG) 10 MG TABLET PO SCH (08:35)
[2021-07-05] MEDS: MUPIROCIN OINT 2% 22 GM TUBE NS SCH ×2 (08:42→21:03)
[2021-07-05] MEDS: INSULIN GLARGINE, 100 UNIT/ML CARTRIDGE SQ SCH ×2 (08:45→17:12)
[2021-07-05] MEDS: CLOTRIMAZOLE 1% 15 GM TUBE TP SCH ×2 (08:45→17:06)
[2021-07-05] MEDS: ISOSORBIDE MONONITRATE (30MG) 30 MG TAB.SR.24H PO SCH (09:00)
[2021-07-05] MEDS: DILTIAZEM HCL CD 240 MG PO SCH (09:00)
[2021-07-05] MEDS: RANOLAZINE 500 MG TAB.ER.12H PO SCH ×2 (09:00→17:00)
[2021-07-05] MEDS: APIXABAN 5 MG TABLET PO SCH ×2 (09:00→17:05)
[2021-07-05 09:04] LABS: ABG BASE EXCESS 4.4 mmol/L; ABG OXYGEN SATURATION 93.1 % (92.0-98.5); ABG PCO2 40.4 mmHg (35.0-45.0); ABG PH 7.466 (7.350-7.450); ABG PO2 66.7 mmHg (75.0-100.0); AaDO2 99.7 mmHg; COHb 0.8 % (0.5-1.5); MetHb 0.1 % (0.0-1.5); O2Hb 92.3 % (94.0-97.0); SITE, ABG Left Radial; VENT MODE, BG SIMV 4 PS 15 30% +5
--- NOTE | 2021-07-05 10:00 | NUR ---
RN NOTES DR BLAIR AND DR RAJPUT NOTIFIED REGARDING MEDS THAT CAN NOT BE CRUSHED , MEDS HELD PER DR RAJPUT ORDER AT THIS TIME .
--- NOTE | 2021-07-05 11:00 | NUR ---
RN NOTES PT FAILED SIMV MODE , BACK ON AC MODE PER DR DARLEEN AKHTAR
[2021-07-05 11:01] LABS: BILIRUBIN,URINE NEGATIVE (NEGATIVE); COLOR,URINE YELLOW (YELLOW); LEUKOCYTE ESTERASE ,URINE SMALL (NEGATIVE); NITRITE, URINE NEGATIVE (NEGATIVE); PH,URINE 5.5 (5.0-8.0); PROTEIN,URINE TRACE mg/dl (NEGATIVE); UGLUCOSE NEGATIVE (NEGATIVE); UROBILINOGEN,URINE 0.2 EU/dL (0.2)
[2021-07-05] MEDS ORDERED: VANCOMYCIN 1 GM in IV D5W 250 ML IV SCH (13:00)
[2021-07-05 13:58] LABS: RBC,URINE 0-2 /HPF (0-2)
[2021-07-05 13:59] LABS: BACTERIA,URINE Few /HPF (None Seen); SQUAMOUS EPITHELIAL CELL,UR Few /HPF (None Seen); YEAST,URINE Many /HPF (None Seen)
--- NOTE | 2021-07-05 14:00 | NUR ---
RN NOTES FAMILY AT THE BEDSIDE, TF AT 20 CC/HR RUNNING , NO RESIDUAL NOTED, CONTINUE TO MONITOR .
[2021-07-05] MEDS: OSMOLITE 1.2 CAL 1,000 ML LIQUID GT PRN (15:14)
[2021-07-05] MEDS: DIGOXIN 0.125 MG TABLET PO SCH (15:42)
--- NOTE | 2021-07-05 18:33 | NUR ---
RN NOTES PT REMAINS INTUBATED AND SEDATED, ON DIPRIVAN AT 20 MCG/KG/MIN RUNNING , TOLERATING VENT SETTING WELL, ON TELE A.FIB HR IN 90'S , JOHNSON DRAINING TO GRAVITY, SR UP x3, CALL LIGHT WITHIN EASY REACH, WILL ENDORSE TO SHIP'S CAPTAIN NURSE FOR CONTINUITY OF CARE .
[2021-07-05] MEDS ORDERED: DIGOXIN INJ 0.5 MG/2 ML AMPUL IV SCH (19:00)
[2021-07-05] MEDS ORDERED: METOPROLOL TARTRATE INJ 5 MG/5 ML AMPUL IVP PRN (19:00)
--- NOTE | 2021-07-05 19:50 | NUR ---
RN NOTE PATIENT IS SEDATED AND INTUBATED, [facility] TOLERATING SETTINGS WELL. SEDATED WITH DIPRIVAN @20MCG/KG/MIN. IV ACCESS GISSEL MIDLINE INTACT, PATENT AND FLUSHED. OG TUBE IN PLACE, WITH OSMOLITE @20 ML/HR. 30CC RESIDUAL NOTED. JOHNSON CATH IN PLACE DRAINING WITH YELLOW URINE VIA GRAVITY. SAFETY MEASURES IN PLACE. BED LOCKED AND IN LOWEST POSITION. WILL CONTINUE TO MONITOR.
[2021-07-05] MEDS: QUETIAPINE FUMARATE 25 MG TABLET PO SCH (21:01)
[2021-07-05] MEDS: ATORVASTATIN 10 MG TABLET PO SCH (21:01)
[2021-07-05] MEDS: SENNOSIDES 8.6 MG TABLET PO SCH (21:01)
[2021-07-06] VITALS (83 sets, daily range): BP systolic 81–164; BP diastolic 43–71
[2021-07-06] MEDS ORDERED: NOREPINEPHRINE 4 MG/4 ML AMPUL IV ONE (01:43)
[2021-07-06] MEDS: IPRATROPIUM NEB FS 0.5 MG/2.5 ML AMPUL.NEB NEB SCH ×4 (01:45→20:06)
[2021-07-06] MEDS: NOREPINEPHRINE 32 MG in IV NS 0.9% 218 ML IV PRN (01:57)
--- NOTE | 2021-07-06 01:57 | NUR ---
RN NOTE PATIENT BLOOD PRESSURE TRENDING DOWN SBP 65/34, HR 87. RESTARTED ON LEVO 0.01MCG/KG/MIN. TITRATED PER PROTOCOL. SEE IV SPREADSHEET. CHARGE NURSE RN AWARE.
[2021-07-06] MEDS: BLOOD SUGAR DIAGNOSTIC 1 EACH STRIP IN SCH ×4 (05:15→23:34)
[2021-07-06] MEDS: INSULIN REGULAR, HUMAN 100 UNIT/ML 3 ML VIAL SQ PRN ×3 (05:16→17:36)
[2021-07-06] MEDS: methylPREDNISolone SOD SUCC 40 MG/ML VIAL IV SCH ×3 (05:16→20:54)
[2021-07-06 05:31] LABS: CALCIUM, SERUM 7.9 mg/dL (8.5-10.1); CARBON DIOXIDE 31 mmol/L (21-32); CHLORIDE 100 mmol/L (98-107); CREATININE 1.6 mg/dL (0.6-1.3); GLUCOSE 151 mg/dL (74-106); POTASSIUM 3.5 mmol/L (3.5-5.1); SODIUM SERUM 141 mmol/L (136-145)
[2021-07-06 05:35] LABS: UREA NITROGEN, BLOOD 80 mg/dL (7-18)
[2021-07-06] MEDS: PROPOFOL 100 ML IV PRN ×3 (05:40→19:36)
--- NOTE | 2021-07-06 07:30 | NUR ---
RN NOTE PATIENT OBSERVED IN BED INTUBATED WITH MECHANICAL VENTILATOR, ON PROPOFOL 20MCG/KG/MIN, SEDATED NOT IN DISTRESS, ON LEVOPHED DRIP 0.08 MCG/KG/MIN, ON TELE MONITOR CONTROLLED A-FIB AT THIS TIME, PATIENT ON NGT OSMOLITE 20 CC/HR TOLERATING WELL, ON BILATERAL SOFT WRIST RESTRAINT SKIN INTACT, SAFETY MEASURE OBSERVED, BED WHEELS LOCK, CALL LIGHT WITHIN REACH, WILL CONTINUE TO MONITOR.
--- NOTE | 2021-07-06 07:32 | NUR ---
RN NOTE PATIENT IS SEDATED AND INTUBATED, ON MECH VENT TOLERATING SETTINGS WELL. SEDATED WITH DIPRIVAN @20MCG/KG/MIN. ALSO LEVO INFUSING @ 0.08MCG/KG/MIN. IV ACCESS GISSEL MIDLINE INTACT, PATENT AND FLUSHED. OG TUBE IN PLACE, WITH OSMOLITE @20 ML/HR. NO RESIDUAL NOTED. JOHNSON CATH IN PLACE, OUTPUT 750CC OF YELLOW URINE. SAFETY MEASURES IN PLACE. BED LOCKED AND IN LOWEST POSITION. TOLERATED BED BATH WELL. ENDORSED TO AM SHIFT.
[2021-07-06] MEDS ORDERED: DIGOXIN 0.125 MG TABLET GT SCH (07:51)
[2021-07-06] MEDS ORDERED: MAGNESIUM HYDROXIDE 30 ML UDC GT PRN (07:52)
[2021-07-06] MEDS ORDERED: ATORVASTATIN 10 MG TABLET GT SCH (07:52)
[2021-07-06] MEDS ORDERED: MAG HYDROX/AL HYDROX/SIMETH 30 ML UDC GT PRN (07:53)
[2021-07-06] MEDS ORDERED: QUETIAPINE FUMARATE 25 MG TABLET GT SCH (07:53)
[2021-07-06] MEDS ORDERED: ACETAMINOPHEN 650 MG/20.3 ML UDC GT PRN (08:00)
[2021-07-06] MEDS: METOPROLOL TARTRATE 25 MG TABLET GT SCH ×2 (08:22→17:00)
[2021-07-06] MEDS: BENAZEPRIL HCL 20 MG TABLET GT SCH (08:23)
[2021-07-06] MEDS: ISOSORBIDE MONONITRATE (30MG) 30 MG TAB.SR.24H PO SCH (08:23)
[2021-07-06] MEDS: DILTIAZEM HCL CD 240 MG PO SCH (08:23)
--- NOTE | 2021-07-06 08:24 | NUR ---
RN NOTE PER PATRICIA RAJPUT HOLD HYPERTENSIVE MEDICATION.
[2021-07-06] MEDS: RANOLAZINE 500 MG TAB.ER.12H PO SCH ×2 (09:41→17:33)
[2021-07-06] MEDS: MONTELUKAST SODIUM (10MG) 10 MG TABLET GT SCH (09:41)
[2021-07-06] MEDS: MUPIROCIN OINT 2% 22 GM TUBE NS SCH ×2 (09:43→21:07)
[2021-07-06] MEDS: CEFEPIME 2 GM in IV D5W 100 ML IV SCH (09:43)
[2021-07-06] MEDS: CLOTRIMAZOLE 1% 15 GM TUBE TP SCH ×2 (09:43→17:34)
[2021-07-06] MEDS: INSULIN GLARGINE, 100 UNIT/ML CARTRIDGE SQ SCH ×2 (09:45→17:36)
[2021-07-06] MEDS: APIXABAN 5 MG TABLET GT SCH ×2 (09:46→17:35)
[2021-07-06 10:53] LABS: BASOPHILS % (AUTO) 0.1 % (0.0-2.0); EOSINOPHILS % (AUTO) 0.5 % (0.0-6.0); HEMATOCRIT 35 % (33-45); HEMOGLOBIN 11.4 g/dL (11.5-14.8); LYMPHOCYTES # (AUTO) 0.6 K/uL (0.8-4.8); MEAN CORPUSCULAR HGB CONC 32 g/dl (31.0-36.0); MEAN CORPUSCULAR VOLUME 87 fL (82-100); MONOCYTES # (AUTO) 0.6 K/uL (0.1-1.30); NEUTROPHILS # (AUTO) 13.8 K/uL (1.8-8.9); NEUTROPHILS % (AUTO) 91.4 % (43.0-81.0); PLATELET COUNT (AUTO) 227 K/uL (150-450); RED BLOOD CELL COUNT(AUTO) 4.06 MIL/uL (4.0-5.2); WHITE BLOOD COUNT (AUTO) 15.1 K/uL (4.3-11.0)
[2021-07-06] MEDS: MEROPENEM 1 G in IV NS 0.9% 100 ML IV SCH ×2 (11:49→22:51)
[2021-07-06] MEDS: LEVALBUTEROL HCL NEB 1.25 MG/0.5 ML VIAL.NEB NEB PRN (12:22)
[2021-07-06] MEDS: VANCOMYCIN 0.75 GM in IV D5W 250 ML IV SCH (13:29)
[2021-07-06] MEDS: DIGOXIN ELIX UDC 0.25 MG/5 ML UDC GT SCH (15:02)
--- NOTE | 2021-07-06 16:36 | NUR ---
RN NOTE DIETARY RECOMMENDATION START PATIENT WITH GLUCERNA 1.2 GOAL OF 50 CC/HR.
[2021-07-06] MEDS ORDERED: GLUCERNA 1.2 1,000 ML BOTTLE NG PRN (17:00)
--- NOTE | 2021-07-06 19:15 | NUR ---
ICU/GRAIN OILSEED OR PASTURE GROWER LEVO RECIEVED AT 0.06MCH BLOOD PRESSURE WAS STABLE. CHARGE NURSE MADE AWARE OF THIS AND DECREASED DOWN THE LEVO TO 0.04MCG. WILL CONTINUE TO MONITOR THIS PT AND HER BLOOD PRESSURE.
--- NOTE | 2021-07-06 19:16 | NUR ---
RN NOTE PATIENT OBSERVED IN BED INTUBATED WITH MECHANICAL VENTILATOR, ON PROPOFOL 20MCG/KG/MIN, SEDATED NOT IN DISTRESS, ON LEVOPHED DRIP 0.06 MCG/KG/MIN, ON TELE MONITOR CONTROLLED A-FIB AT THIS TIME, PATIENT ON OGT GLUCERNA 1.2 @ 20 CC/HR GOAL OF 50CC/HR TOLERATING WELL, ON BILATERAL SOFT WRIST RESTRAINT SKIN INTACT, SAFETY MEASURE OBSERVED, BED WHEELS LOCK, CALL LIGHT WITHIN REACH, WILL ENDORSE TO NOC SHIFT.
--- NOTE | 2021-07-06 20:33 | NUR ---
RECEIVED PT INTUBATED 7.0 ETT SECURED AT 23CM. NO RESP DISTRESS. PT TOLERATING VENT SETTINGS. SX'D SMALL AMT OF WHITE SECRETIONS. VENT ALARMS SET AND AUDIBLE. CONTINUE TO MONITOR. Addendum: 07/06/21 at 2033 by LUCIANA AVILA RT Amended: Links added.
[2021-07-06] MEDS: SENNOSIDES 8.6 MG TABLET PO SCH (21:06)
--- NOTE | 2021-07-06 21:16 | NUR ---
ICU/STENCIL SPRAYER PT IS CURRENTLY INTUBATED AND SEDATED, THERE IS NO NEED FOR 2200 MEDICATION OF SEROQUEL.
[2021-07-07] VITALS (51 sets, daily range): BP systolic 90–148; BP diastolic 31–66
--- NOTE | 2021-07-07 01:15 | NUR ---
ICU/REGULATORY AFFAIRS CONSULTANT LEVO RECIEVED AT 0.04 MCG BLOOD PRESSURE WAS STABLE. CHARGE NURSE MADE AWARE OF THIS AND DECREASED DOWN THE LEVO TO 0.02MCG. WILL CONTINUE TO MONITOR THIS PT AND HER BLOOD PRESSURE.
[2021-07-07] MEDS: IPRATROPIUM NEB FS 0.5 MG/2.5 ML AMPUL.NEB NEB SCH ×3 (01:17→19:30)
[2021-07-07] MEDS: PROPOFOL 100 ML IV PRN (02:13)
--- NOTE | 2021-07-07 02:30 | NUR ---
ICU/RN ADMIT LEVO AT 0.062 MCG BLOOD PRESSURE WAS STABLE. CHARGE NURSE MADE AWARE OF THIS AND LEVO NOW ON HOLD. WILL CONTINUE TO MONITOR THIS PT AND HER BLOOD PRESSURE.
[2021-07-07] MEDS: methylPREDNISolone SOD SUCC 40 MG/ML VIAL IV SCH ×3 (04:52→20:59)
[2021-07-07 05:05] LABS: BASOPHILS # (AUTO) 0.1 K/uL (0.0-0.2); BASOPHILS % (AUTO) 0.5 % (0.0-2.0); HEMATOCRIT 30 % (33-45); HEMOGLOBIN 9.9 g/dL (11.5-14.8); LYMPHOCYTES # (AUTO) 0.6 K/uL (0.8-4.8); MEAN CORPUSCULAR HGB CONC 33 g/dl (31.0-36.0); MEAN CORPUSCULAR VOLUME 87 fL (82-100); MONOCYTES # (AUTO) 0.5 K/uL (0.1-1.30); MONOCYTES % (AUTO) 5.5 % (2.0-12.0); NEUTROPHILS # (AUTO) 8.4 K/uL (1.8-8.9); PLATELET COUNT (AUTO) 159 K/uL (150-450); WHITE BLOOD COUNT (AUTO) 9.6 K/uL (4.3-11.0)
[2021-07-07 05:17] LABS: CALCIUM, SERUM 7.6 mg/dL (8.5-10.1); CARBON DIOXIDE 30 mmol/L (21-32); CHLORIDE 105 mmol/L (98-107); CREATININE 1.6 mg/dL (0.6-1.3); GLUCOSE 115 mg/dL (74-106); POTASSIUM 3.8 mmol/L (3.5-5.1); SODIUM SERUM 144 mmol/L (136-145); UREA NITROGEN, BLOOD 77 mg/dL (7-18)
[2021-07-07] MEDS: BLOOD SUGAR DIAGNOSTIC 1 EACH STRIP IN SCH ×4 (05:23→23:34)
[2021-07-07 06:29] LABS: BAND % (MANUAL) 3 % (0.0-5.0); LYMPHOCYTES % (MANUAL) 5 % (16-48); METAMYELOCYTES % 2 % (0-0); MONOCYTES % (MANUAL) 1 % (0-11.0); NEUTROPHILS % (MANUAL) 89 (42-76)
--- NOTE | 2021-07-07 07:30 | NUR ---
RN MORNING NOTE PT RECEIVED IN BED AND INTUBATED ON MECHANICAL VENTILATOR. PT IS ON PROPOFOL 20MCG/KG/MIN AND SEDATED NOT IN DISTRESS, PT IS ON TELE MONITOR WITH CONTROLLED A-FIB AT THIS TIME, PT IS ON OGT WITH GLUCERNA 1.2 @ 20 CC/HR WITH A GOAL OF 50CC/HR TOLERATING WELL, CURRENTLY WITH BILATERAL SOFT WRIST RESTRAINT SKIN IS INTACT, ALL SAFETY MEASURE ARE IN PLACE, BED IS LOCKED IN LOWEST POSITION X2 BEDRAILS, CALL LIGHT IS WITHIN REACH, WILL CONTINUE TO MONITOR THIS SHIFT.
[2021-07-07] MEDS ORDERED: GLUCERNA 1.2 1,000 ML BOTTLE NG SCH (08:30)
[2021-07-07] MEDS ORDERED: DC PROPOFOL WHEN EXTUBATED XX PRN (09:00)
--- NOTE | 2021-07-07 09:00 | NUR ---
RN NOTE MEDS UNABLE TO GIVE INDUR, RANOLAZINE, AND CARDIZEM. PT HAS OGT AND MEDICATIONS CAN NOT BE CRUSHED. PHARMACY HAS BEEN CONTACTED.
[2021-07-07] MEDS: APIXABAN 5 MG TABLET GT SCH ×2 (09:08→17:13)
[2021-07-07] MEDS: METOPROLOL TARTRATE 25 MG TABLET GT SCH ×2 (09:08→17:01)
[2021-07-07] MEDS: MONTELUKAST SODIUM (10MG) 10 MG TABLET GT SCH (09:08)
[2021-07-07] MEDS ORDERED: PHARMACY TO CHANGE PO MEDS TO GT/NG XX PRN (09:30)
[2021-07-07] MEDS: MUPIROCIN OINT 2% 22 GM TUBE NS SCH ×2 (09:30→21:00)
[2021-07-07] MEDS: CLOTRIMAZOLE 1% 15 GM TUBE TP SCH ×2 (09:31→17:14)
[2021-07-07] MEDS ORDERED: SENNOSIDES 8.6 MG TABLET GT SCH (09:47)
[2021-07-07] MEDS: BENAZEPRIL HCL 20 MG TABLET GT SCH (09:52)
[2021-07-07 09:55] LABS: ABG BASE EXCESS 2.6 mmol/L; ABG OXYGEN SATURATION 94.7 % (92.0-98.5); ABG PCO2 34.6 mmHg (35.0-45.0); ABG PH 7.489 (7.350-7.450); ABG PO2 73.1 mmHg (75.0-100.0); AaDO2 172.3 mmHg; COHb 0.4 % (0.5-1.5); MetHb 0.3 % (0.0-1.5); PEEP,BG 5 cm H2O; SITE, ABG Right Brachial; VENT MODE, BG simv 4 psv 15; VT, ABG 400 mL
--- NOTE | 2021-07-07 10:00 | NUR ---
RN NOTE PT EXTUBATED AND PLACED ON 4L O2 VIA NC. TOLERATING WELL AT THIS TIME WITH NO SIGNS OF DISTRESS OR LABORED BREATHING.
--- NOTE | 2021-07-07 10:05 | NUR ---
pt extubated per md order. placed on 4lpm low flow oxygen. zero stridor noted. b/s equal. pt able to clear airway.
[2021-07-07] MEDS: INSULIN GLARGINE, 100 UNIT/ML CARTRIDGE SQ SCH ×2 (10:56→17:10)
[2021-07-07] MEDS: MEROPENEM 1 G in IV NS 0.9% 100 ML IV SCH ×2 (11:16→23:04)
[2021-07-07] MEDS: VANCOMYCIN 0.75 GM in IV D5W 250 ML IV SCH (13:58)
[2021-07-07] MEDS: DIGOXIN ELIX UDC 0.25 MG/5 ML UDC GT SCH (14:36)
[2021-07-07] MEDS: DILTIAZEM HCL CD 240 MG PO SCH (14:37)
[2021-07-07] MEDS: RANOLAZINE 500 MG TAB.ER.12H PO SCH ×2 (14:38→18:58)
[2021-07-07] MEDS: ISOSORBIDE MONONITRATE (30MG) 30 MG TAB.SR.24H PO SCH (14:38)
--- NOTE | 2021-07-07 14:45 | NUR ---
RN NOTE PT UNABLE TO TAKE PO DUE TO BEING INTUBATED AND PILLS ORDERED NOT TO BE CRUSHED. PT PASSED BEDSIDE NURSING SWALLOW EVAL AND MEDS GIVEN: CARDIZEM, IMDUR, RANOLAZINE. PT TOLERATED WELL.
[2021-07-07] MEDS: INSULIN REGULAR, HUMAN 100 UNIT/ML 3 ML VIAL SQ PRN ×2 (15:50→17:07)
[2021-07-07] MEDS ORDERED: PHARMACY TO CHANGE GT/NG MEDS TO PO XX PRN (17:30)
[2021-07-07] MEDS ORDERED: MAGNESIUM HYDROXIDE 30 ML UDC PO PRN (18:00)
[2021-07-07] MEDS ORDERED: MAG HYDROX/AL HYDROX/SIMETH 30 ML UDC PO PRN (18:00)
--- NOTE | 2021-07-07 19:56 | NUR ---
RN CLOSING NOTE PT IS LYING IN BED WITH HOB SEMI FOWLERS. PT WAS EXTUBATED TODAY AND PUT ON 4L O2 VIA NC TOLERATING WELL O2 SAT 98% WITH NO SIGNS OF LABORED BREATHING OR DISTRESS. PT IS NPO EXCEPT FOR MEDS AFTER OGT REMOVED. SWALLOW STUDY ORDERED FOR AM. PT IS ON TELE MONITOR WITH CONTROLLED A-FIB AT THIS TIME. ALL SAFETY MEASURES ARE IN PLACE, BED IS LOCKED IN LOWEST POSITION X2 BEDRAILS, CALL LIGHT IS WITHIN REACH, WILL ENDORSE TO APRN NURSE FOR BINA.
--- NOTE | 2021-07-07 20:05 | NUR ---
ICU/CNC WOOD LATHE OPERATOR DAYRON AT BEDSIDE WITH PT. PT APPEARS TO BE RESPONDSIVE TO HER.
[2021-07-07] MEDS: ACETAMINOPHEN 650 MG/20.3 ML UDC PO PRN (21:00)
--- NOTE | 2021-07-07 21:15 | NUR ---
ICU/OUTSIDE SALES ASSOCIATE TYLENOL PO GIVEN FOR PAIN TO LOWER BACK. PT HAS CHRONIC PAIN. PAIN RATED AT 5/10. WILL MONITOR THIS PT.
--- NOTE | 2021-07-07 21:40 | NUR ---
ICU/ARCHERY EQUIPMENT HAY SORTER NOTICED FACIAL DROOPING TO THE RIGHT SIDE, NOTIFED OCCUPATIONAL HEALTH NURSING DIRECTOR SAID TO TAKE PT TO CT STAT WO CONTRAST. ORDERS PLACED AND XRAY NOTIFED.
[2021-07-07] MEDS: QUETIAPINE FUMARATE 25 MG TABLET PO SCH (22:00)
--- NOTE | 2021-07-07 22:00 | NUR ---
ICU/FRAUD ANALYST PT TRASPORTED TO XRAY FOR HEAD CT WITH ACLS PROTOCAL.
--- NOTE | 2021-07-07 22:35 | NUR ---
ICU/ELECTROMECHANICAL INSPECTOR BACK FROM CT WITH PT, PT TOLERATED THIS WELL.
--- NOTE | 2021-07-07 22:50 | NUR ---
ICU/OFFICE COMMUNICATION PROFESSOR 2200 MEDICATION OF SEROQUEL, WAS HELD DUE TO PT IS LETHARGIC.
[2021-07-07] MEDS: ATORVASTATIN 10 MG TABLET PO SCH (23:03)
[2021-07-07] MEDS: SENNOSIDES 8.6 MG TABLET PO SCH (23:03)
--- NOTE | 2021-07-07 23:24 | NUR ---
ICU/MANAGER COLLECTION THE CT OF HEAD REPORT SENT TO LIQUOR STORES AND AGENCIES SUPERVISOR Gonzalo.
[2021-07-08] VITALS (33 sets, daily range): BP systolic 84–132; BP diastolic 33–70
[2021-07-08] MEDS: IPRATROPIUM NEB FS 0.5 MG/2.5 ML AMPUL.NEB NEB SCH ×4 (01:00→19:28)
[2021-07-08] MEDS: methylPREDNISolone SOD SUCC 40 MG/ML VIAL IV SCH ×3 (05:07→21:34)
[2021-07-08] MEDS: BLOOD SUGAR DIAGNOSTIC 1 EACH STRIP IN SCH ×2 (05:14→11:56)
[2021-07-08] MEDS: IV NS 0.9% 250 ML IV PRN (05:14)
[2021-07-08] MEDS: INSULIN REGULAR, HUMAN 100 UNIT/ML 3 ML VIAL SQ PRN ×4 (05:18→17:18)
--- NOTE | 2021-07-08 08:00 | NUR ---
RN NOTES RECEIVED PATIENT IN THE BED A/O X1 WITH CONFUSION, AND FORGETFUL. ON O2-3LNC, VSS, NO ACUTE RESPIRATORY DISTRESS, BS-207 MG/DL COVERAGE GIVEN, DUE MEDICATION ADMINISTERED WELL, SWALLOW EVALUATION DONE, PATIENT TOLERATED WATER AND FOOD, ALSO SEEN SE TECH. PATIENT TOLERATED BREAKFAST 100% WITH TOTAL ASSIST. ASSIST TURN AND REPOSTION Q2HR. JOHNSON DRAINING YELLOW OUTPUT. IV ACCESS ON RIGHT UA MIDLINE INTACT, TKO RUNNING 10 ML/HR INTACT. WILL FOLLOW UP.
[2021-07-08] MEDS: DILTIAZEM HCL CD 240 MG PO SCH (08:05)
[2021-07-08] MEDS: ISOSORBIDE MONONITRATE (30MG) 30 MG TAB.SR.24H PO SCH (08:05)
[2021-07-08] MEDS: CLOTRIMAZOLE 1% 15 GM TUBE TP SCH ×2 (08:06→16:16)
[2021-07-08] MEDS: MUPIROCIN OINT 2% 22 GM TUBE NS SCH (08:06)
[2021-07-08] MEDS: INSULIN GLARGINE, 100 UNIT/ML CARTRIDGE SQ SCH ×2 (08:08→16:18)
[2021-07-08] MEDS: RANOLAZINE 500 MG TAB.ER.12H PO SCH ×2 (08:09→16:03)
[2021-07-08 08:11] LABS: CARBON DIOXIDE 27 mmol/L (21-32); CHLORIDE 107 mmol/L (98-107); CREATININE 1.6 mg/dL (0.6-1.3); GLUCOSE 222 mg/dL (74-106); POTASSIUM 4.2 mmol/L (3.5-5.1); SODIUM SERUM 144 mmol/L (136-145); UREA NITROGEN, BLOOD 73 mg/dL (7-18)
[2021-07-08] MEDS: MONTELUKAST SODIUM (10MG) 10 MG TABLET PO SCH (08:23)
[2021-07-08] MEDS: BENAZEPRIL HCL 20 MG TABLET PO SCH (08:23)
[2021-07-08] MEDS: APIXABAN 5 MG TABLET PO SCH ×2 (08:27→16:03)
[2021-07-08] MEDS: METOPROLOL TARTRATE 25 MG TABLET PO SCH ×2 (09:00→16:16)
[2021-07-08] MEDS: MEROPENEM 1 G in IV NS 0.9% 100 ML IV SCH ×2 (11:55→23:02)
[2021-07-08] MEDS: DIGOXIN 0.125 MG TABLET PO SCH (12:05)
[2021-07-08] MEDS: BLOOD SUGAR DIAGNOSTIC 1 EACH STRIP VI SCH ×3 (12:16→22:17)
[2021-07-08] MEDS ORDERED: DEXTROSE 50%-WATER 50 ML DISP.SYRIN IV PRN (12:30)
--- NOTE | 2021-07-08 12:30 | NUR ---
rn notes patient getting carotid dipolar us at this time, bs-333mg/dl, coverage given, patient will transfer to the tele unit room 324 bed 1. removed Constantino catheter at this time because of frances infection per ID MD order.
[2021-07-08] MEDS: VANCOMYCIN 0.75 GM in IV D5W 250 ML IV SCH (12:49)
--- NOTE | 2021-07-08 13:30 | NUR ---
RN NOTES TRANSFERRED PATIENT TO THE TELE UNIT ROOM 324 BED ONE WITH MEDICATION. VSS. BEDSIDE REPORT GIVEN RN FOLLOW UP PLAN OF CARE.
--- NOTE | 2021-07-08 14:05 | NUR ---
HYDROLOGY TEACHER NOTES RECEIVED PATIENT FROM ICU VIA BED. PATIENT IS AWAKE, A/O X1 WITH CONFUSION NOTED. ON O2 VIA NC AT 3LPM, NO ACUTE RESPIRATORY DISTRESS, IV ACCESS ON RIGHT UA MIDLINE INTACT, NO S/SX OF INFILTRATION NOTED. NOTED WITH PITTING EDEMA ON BUE (+2). ON TELE MONITOR SHOWING CONTROLLED A FIB HR AT 80'S. SAFETY PRECAUTIONS IN PLACE: BED ON LOWEST LOCKED POSITION, SIDE RAILS UP X 2, CALL LIGHT WITHIN EASY REACH. WILL CONTINUE TO MONITOR ACCORDINGLY.
[2021-07-08] MEDS: ACETAMINOPHEN 650 MG/20.3 ML UDC PO PRN (16:01)
--- NOTE | 2021-07-08 18:49 | NUR ---
INCLUSION PARAEDUCATOR CLOSING NOTES PATIENT IN BED, AWAKE, A/O X1 WITH CONFUSION NOTED, PATIENT IS AUSTRIAN SPEAKING AND SPEAKS A LITTLE CITIZEN OF [place]. ON O2 VIA NC AT 3LPM, NO ACUTE RESPIRATORY DISTRESS, IV ACCESS ON RIGHT UPPER ARM MIDLINE INTACT, NO S/SX OF INFILTRATION NOTED. NOTED WITH PITTING EDEMA ON BUE (+2). ON TELE MONITOR SHOWING CONTROLLED A FIB HR AT 80'S. SAFETY PRECAUTIONS IN PLACE: BED ON LOWEST LOCKED POSITION, SIDE RAILS UP X 2, CALL LIGHT WITHIN EASY REACH. ALL NEEDS ATTENDED ANAD MET. DUE MEDS GIVEN ORDERED. WILL ENDORSE TO ONCOMING SHIFT FOR BINA.
--- NOTE | 2021-07-08 19:45 | NUR ---
ASSET MANAGEMENT LEAD OPENING NOTES RECEIVED PATIENT LAYING ASLEEP EASILY AROUSABLE IN BED. A/OX 1-2. PATIENT IS DANISH SPEAKING AND SPEAKS A LITTLE LAO PATIENT WITH REGULAR AND UNLABORED BREATHING ON 3 LPM VIA NASAL CANNULA TOLERATED WELL. NO SIGNS AND SYMPTOMS OF DISTRESS NOTED. NO COMPLAIN OF PAIN OR DISCOMFORT AT THIS TIME. PATIENT ON TELE MONITOR READING CONTROLLED A-FIB @ 91 BPM. IV ACCESS GISSEL MIDLINE SL. IV ACCESS INTACT AND PATENT. SAFETY PRECAUTIONS ENFORCED WITH BED LOCKED AND AT LOWEST POSITION. SIDERAILS UP X2. CALL LIGHT WITHIN REACH AT ALL TIMES WILL CONTINUE TO MONITOR PATIENT.
[2021-07-08] MEDS: ATORVASTATIN 10 MG TABLET PO SCH (21:33)
[2021-07-08] MEDS: SENNOSIDES 8.6 MG TABLET PO SCH (21:33)
[2021-07-08] MEDS: QUETIAPINE FUMARATE 25 MG TABLET PO SCH (21:34)
[2021-07-08] MEDS: *INSULIN REGULAR(HUMULIN R)HUM 100 UNIT/ML VIAL SQ PRN (22:25)
[2021-07-09] VITALS: BP 112/48
[2021-07-09] MEDS: IPRATROPIUM NEB FS 0.5 MG/2.5 ML AMPUL.NEB NEB SCH ×4 (01:25→19:50)
[2021-07-09 04:00] VITALS: BP 119/51
[2021-07-09] MEDS: methylPREDNISolone SOD SUCC 40 MG/ML VIAL IV SCH ×3 (05:27→20:28)
--- NOTE | 2021-07-09 07:43 | NUR ---
DIRECTOR OF PEDIATRIC REHABILITATION CLOSING NOTES PATIENT STILL LAYING ASLEEP EASILY AROUSABLE IN BED. A/OX 1-2. PATIENT IS SAMI SPEAKING AND SPEAKS A LITTLE SWEDISH PATIENT WITH REGULAR AND UNLABORED BREATHING ON 3 LPM VIA NASAL CANNULA TOLERATED WELL. NO SIGNS AND SYMPTOMS OF DISTRESS NOTED. NO COMPLAIN OF PAIN OR DISCOMFORT AT THIS TIME. PATIENT ON TELE MONITOR READING CONTROLLED A-FIB @ 81 BPM. IV ACCESS GISSEL MIDLINE SL. IV ACCESS INTACT AND PATENT. SAFETY PRECAUTIONS ENFORCED WITH BED LOCKED AND AT LOWEST POSITION. SIDERAILS UP X2. CALL LIGHT WITHIN REACH AT ALL TIMES WILL ENDORSE BINA TO DAY SHIFT NURSE.
--- NOTE | 2021-07-09 07:55 | NUR ---
STEAM BLOCKER OPENING NOTES PT ASLEEP IN BED, EASILY AROUSABLE. A/OX 1-2. PATIENT IS CZECH SPEAKING AND SPEAKS A LITTLE GAMBIAN. BREATHING REGULAR AND UNLABORED, ON 3 LPM VIA NASAL CANNULA. NO SIGNS AND SYMPTOMS OF DISTRESS NOTED. NO COMPLAINTS OF PAIN OR DISCOMFORT AT THIS TIME. PATIENT ON TELE MONITOR READING CONTROLLED A-FIB @ 80'S BPM. IV ACCESS GISSEL MIDLINE SL. IV ACCESS INTACT AND PATENT. SAFETY PRECAUTIONS ENFORCED WITH BED LOCKED AND AT LOWEST POSITION. SIDERAILS UP X2. CALL LIGHT WITHIN REACH AT ALL TIMES. WILL CONTINUE TO MONITOR PT THROUGHOUT SHIFT.
[2021-07-09 08:00] VITALS: BP 136/52
[2021-07-09] MEDS: BLOOD SUGAR DIAGNOSTIC 1 EACH STRIP VI SCH ×3 (08:04→16:31)
[2021-07-09] MEDS: *INSULIN REGULAR(HUMULIN R)HUM 100 UNIT/ML VIAL SQ PRN ×2 (08:34→11:35)
[2021-07-09] MEDS: APIXABAN 5 MG TABLET PO SCH ×2 (08:35→16:23)
[2021-07-09] MEDS: ISOSORBIDE MONONITRATE (30MG) 30 MG TAB.SR.24H PO SCH (08:36)
[2021-07-09] MEDS: MONTELUKAST SODIUM (10MG) 10 MG TABLET PO SCH (08:36)
[2021-07-09] MEDS: RANOLAZINE 500 MG TAB.ER.12H PO SCH ×2 (08:37→16:22)
[2021-07-09] MEDS: METOPROLOL TARTRATE 25 MG TABLET PO SCH ×2 (08:37→16:24)
[2021-07-09] MEDS: BENAZEPRIL HCL 20 MG TABLET PO SCH (08:37)
[2021-07-09] MEDS: DILTIAZEM HCL CD 240 MG PO SCH (08:38)
[2021-07-09] MEDS: CLOTRIMAZOLE 1% 15 GM TUBE TP SCH ×2 (08:40→16:21)
[2021-07-09] MEDS: INSULIN GLARGINE, 100 UNIT/ML CARTRIDGE SQ SCH ×2 (08:45→16:32)
[2021-07-09] MEDS: MEROPENEM 1 G in IV NS 0.9% 100 ML IV SCH ×2 (11:24→22:37)
[2021-07-09] MEDS: DIGOXIN 0.125 MG TABLET PO SCH (12:29)
[2021-07-09] MEDS: VANCOMYCIN 0.75 GM in IV D5W 250 ML IV SCH (12:29)
[2021-07-09] MEDS ORDERED: LORAZEPAM 0.5 MG TABLET PO PRN (12:30)
[2021-07-09 16:00] VITALS: BP 132/57
[2021-07-09] MEDS: INSULIN REGULAR, HUMAN 100 UNIT/ML 3 ML VIAL SQ PRN (16:34)
--- NOTE | 2021-07-09 18:49 | NUR ---
CARPET SEWING MACHINE OPERATOR CLOSING NOTES PT ASLEEP IN BED, EASILY AROUSABLE. BREATHING REGULAR AND UNLABORED, ON 3 LPM VIA NASAL CANNULA. NO SIGNS AND SYMPTOMS OF DISTRESS NOTED. NO COMPLAINTS OF PAIN OR DISCOMFORT AT THIS TIME. PATIENT ON TELE MONITOR READING CONTROLLED A-FIB @ 80'S BPM. IV ACCESS GISSEL MIDLINE SL PATENT AND INTACT.SAFETY PRECAUTIONS MAINTAINED WITH BED LOCKED AND AT LOWEST POSITION. SIDERAILS UP X2. CALL LIGHT WITHIN REACH AT ALL TIMES. WILL ENDORSE CONTINUITY OF CARE TO ONCOMING SHIFT.
--- NOTE | 2021-07-09 19:35 | NUR ---
TABLEAU ADMINISTRATOR OPENING NOTES RECEIVED PATIENT LAYING ASLEEP EASILY AROUSABLE IN BED. A/OX 1-2. PATIENT IS SET[place] SPEAKING AND SPEAKS A LITTLE LATVIAN PATIENT WITH REGULAR AND UNLABORED BREATHING ON 3 LPM VIA NASAL CANNULA TOLERATED WELL. NO SIGNS AND SYMPTOMS OF DISTRESS NOTED. NO COMPLAIN OF PAIN OR DISCOMFORT AT THIS TIME. PATIENT ON TELE MONITOR READING CONTROLLED A-FIB @ 91 BPM. IV ACCESS GISSEL MIDLINE SL. IV ACCESS INTACT AND PATENT. SAFETY PRECAUTIONS ENFORCED WITH BED LOCKED AND AT LOWEST POSITION. SIDERAILS UP X2. CALL LIGHT WITHIN REACH AT ALL TIMES WILL CONTINUE TO MONITOR PATIENT.
[2021-07-09] MEDS: QUETIAPINE FUMARATE 25 MG TABLET PO SCH (22:31)
[2021-07-09] MEDS: ATORVASTATIN 10 MG TABLET PO SCH (22:31)
[2021-07-09] MEDS: SENNOSIDES 8.6 MG TABLET PO SCH (22:31)
[2021-07-10] MEDS: BLOOD SUGAR DIAGNOSTIC 1 EACH STRIP VI SCH ×5 (00:09→23:22)
[2021-07-10] MEDS: *INSULIN REGULAR(HUMULIN R)HUM 100 UNIT/ML VIAL SQ PRN (00:15)
[2021-07-10] MEDS: IPRATROPIUM NEB FS 0.5 MG/2.5 ML AMPUL.NEB NEB SCH ×4 (00:55→19:43)
[2021-07-10] MEDS: methylPREDNISolone SOD SUCC 40 MG/ML VIAL IV SCH ×3 (04:20→22:52)
[2021-07-10 06:44] LABS: BASOPHILS % (AUTO) 0.2 % (0.0-2.0); HEMATOCRIT 30 % (33-45); HEMOGLOBIN 10.1 g/dL (11.5-14.8); LYMPHOCYTES # (AUTO) 0.6 K/uL (0.8-4.8); LYMPHOCYTES % (AUTO) 5.7 % (20.0-44.0); MEAN CORPUSCULAR HGB CONC 33 g/dl (31.0-36.0); MEAN CORPUSCULAR VOLUME 87 fL (82-100); MONOCYTES # (AUTO) 0.4 K/uL (0.1-1.30); MONOCYTES % (AUTO) 3.6 % (2.0-12.0); NEUTROPHILS # (AUTO) 10.1 K/uL (1.8-8.9); NEUTROPHILS % (AUTO) 90.5 % (43.0-81.0); PLATELET COUNT (AUTO) 184 K/uL (150-450); WHITE BLOOD COUNT (AUTO) 11.1 K/uL (4.3-11.0)
[2021-07-10 06:58] LABS: CALCIUM, SERUM 8.7 mg/dL (8.5-10.1); CARBON DIOXIDE 28 mmol/L (21-32); CHLORIDE 108 mmol/L (98-107); CREATININE 1.6 mg/dL (0.6-1.3); GLUCOSE 127 mg/dL (74-106); MAGNESIUM 2.8 mg/dL (1.8-2.4); PHOSPHORUS 3.4 mg/dL (2.5-4.9); POTASSIUM 3.6 mmol/L (3.5-5.1); SODIUM SERUM 144 mmol/L (136-145); UREA NITROGEN, BLOOD 73 mg/dL (7-18)
--- NOTE | 2021-07-10 07:21 | NUR ---
CAR WASH ATTENDANT CLOSING NOTES PATIENT STILL LAYING ASLEEP EASILY AROUSABLE IN BED. A/OX 1-2. PATIENT IS UPPER SORBIAN SPEAKING AND SPEAKS A LITTLE WALLISIAN PATIENT WITH REGULAR AND UNLABORED BREATHING ON 3 LPM VIA NASAL CANNULA TOLERATED WELL. NO SIGNS AND SYMPTOMS OF DISTRESS NOTED. NO COMPLAIN OF PAIN OR DISCOMFORT AT THIS TIME. PATIENT ON TELE MONITOR READING CONTROLLED A-FIB @ 95 BPM. IV ACCESS GISSEL MIDLINE SL. IV ACCESS INTACT AND PATENT. SAFETY PRECAUTIONS ENFORCED WITH BED LOCKED AND AT LOWEST POSITION. SIDERAILS UP X2. CALL LIGHT WITHIN REACH AT ALL TIMES WILL ENDORSE BINA TO DAY SHIFT NURSE.
--- NOTE | 2021-07-10 07:30 | NUR ---
SUPERINTENDENT METERS OPENING NOTES RECEIVED PT ASLEEP IN BED, EASILY AWAKEN BY VERBAL AND TACTILE STIMULI. A/OX 1-2. PATIENT IS ZAMBIAN SPEAKING AND SPEAKS A LITTLE WOLOF. BREATHING REGULAR AND UNLABORED, ON 3 LPM VIA NASAL CANNULA. NO SIGNS AND SYMPTOMS OF DISTRESS NOTED. NO COMPLAINTS OF PAIN OR DISCOMFORT AT THIS TIME. PATIENT ON TELE MONITOR READING CONTROLLED A-FIB @ 80'S BPM. IV ACCESS GISSEL MIDLINE SL. IV ACCESS INTACT AND PATENT. SAFETY PRECAUTIONS ENFORCED WITH BED LOCKED AND AT LOWEST POSITION. SIDE RAILS UP X2. CALL LIGHT WITHIN REACH AT ALL TIMES. WILL CONTINUE TO MONITOR PT THROUGHOUT SHIFT.
[2021-07-10 08:00] VITALS: BP 110/50
[2021-07-10] MEDS: RANOLAZINE 500 MG TAB.ER.12H PO SCH ×2 (09:05→16:42)
[2021-07-10] MEDS: ISOSORBIDE MONONITRATE (30MG) 30 MG TAB.SR.24H PO SCH (09:05)
[2021-07-10] MEDS: CLOTRIMAZOLE 1% 15 GM TUBE TP SCH ×2 (09:05→16:41)
[2021-07-10] MEDS: DILTIAZEM HCL CD 240 MG PO SCH (09:06)
[2021-07-10] MEDS: METOPROLOL TARTRATE 25 MG TABLET PO SCH ×2 (09:06→16:42)
[2021-07-10] MEDS: MONTELUKAST SODIUM (10MG) 10 MG TABLET PO SCH (09:06)
[2021-07-10] MEDS: BENAZEPRIL HCL 20 MG TABLET PO SCH (09:06)
[2021-07-10] MEDS: APIXABAN 5 MG TABLET PO SCH ×2 (09:07→16:43)
[2021-07-10] MEDS: INSULIN GLARGINE, 100 UNIT/ML CARTRIDGE SQ SCH ×2 (09:08→17:28)
[2021-07-10] MEDS: MEROPENEM 1 G in IV NS 0.9% 100 ML IV SCH ×2 (11:03→22:52)
[2021-07-10] MEDS: INSULIN REGULAR, HUMAN 100 UNIT/ML 3 ML VIAL SQ PRN ×2 (11:18→17:29)
[2021-07-10 12:00] VITALS: BP 119/61
[2021-07-10] MEDS: DIGOXIN 0.125 MG TABLET PO SCH (12:30)
[2021-07-10] MEDS: ACETAMINOPHEN 650 MG/20.3 ML UDC PO PRN (12:47)
[2021-07-10] MEDS: VANCOMYCIN 0.75 GM in IV D5W 250 ML IV SCH (13:00)
--- NOTE | 2021-07-10 13:42 | NUR ---
RN NOTES VANCO THROUGH RESULT IN=21, PHARMACY INFORMED. DOSE HELD PER PHARMACY PROTOCOL.
[2021-07-10 16:00] VITALS: BP 110/58
--- NOTE | 2021-07-10 18:25 | NUR ---
SHIPPER AND RECEIVING CLOSING NOTES PATIENT ASLEEP IN BED, EASILY AWAKEN BY VERBAL AND TACTILE STIMULI. A/OX 1-2. PATIENT IS ESTONIAN SPEAKING AND SPEAKS A LITTLE [place]. BREATHING REGULAR AND UNLABORED, ON 3 LPM VIA NASAL CANNULA. NO SIGNS AND SYMPTOMS OF DISTRESS NOTED. NO COMPLAINTS OF PAIN OR DISCOMFORT AT THIS TIME. PATIENT ON TELE MONITOR READING CONTROLLED A-FIB @ 60'S BPM. IV ACCESS GSISEL MIDLINE SL. IV ACCESS INTACT AND PATENT. SAFETY PRECAUTIONS ENFORCED WITH BED LOCKED AND AT LOWEST POSITION. SIDE RAILS UP X2. CALL LIGHT WITHIN REACH AT ALL TIMES. ALL NEEDS ATTENDED AND MET, DUE MEDS GIVEN ORDERED. WILL ENDORSE TO ONCOMING SHIFT FOR BINA.
[2021-07-10 20:00] VITALS: BP 128/55
[2021-07-10] MEDS: SENNOSIDES 8.6 MG TABLET PO SCH (22:52)
[2021-07-10] MEDS: ATORVASTATIN 10 MG TABLET PO SCH (22:52)
[2021-07-10] MEDS: QUETIAPINE FUMARATE 25 MG TABLET PO SCH (22:52)
--- NOTE | 2021-07-10 23:22 | NUR ---
DID NOT ADMINISTER INSULIN AT BEDTIME BC PATIENT DID NOT WANT SNACK.
[2021-07-11] VITALS: BP 117/47
[2021-07-11] MEDS: IPRATROPIUM NEB FS 0.5 MG/2.5 ML AMPUL.NEB NEB SCH ×4 (00:30→19:19)
[2021-07-11 04:00] VITALS: BP 129/55
[2021-07-11] MEDS: methylPREDNISolone SOD SUCC 40 MG/ML VIAL IV SCH ×2 (04:09→09:57)
[2021-07-11] MEDS: BLOOD SUGAR DIAGNOSTIC 1 EACH STRIP VI SCH ×4 (06:45→22:08)
[2021-07-11 06:56] LABS: BASOPHILS % (AUTO) 0.3 % (0.0-2.0); HEMATOCRIT 30 % (33-45); HEMOGLOBIN 10.2 g/dL (11.5-14.8); LYMPHOCYTES # (AUTO) 0.5 K/uL (0.8-4.8); LYMPHOCYTES % (AUTO) 5.8 % (20.0-44.0); MEAN CORPUSCULAR HGB CONC 34 g/dl (31.0-36.0); MEAN CORPUSCULAR VOLUME 87 fL (82-100); MONOCYTES # (AUTO) 0.3 K/uL (0.1-1.30); MONOCYTES % (AUTO) 2.7 % (2.0-12.0); NEUTROPHILS # (AUTO) 8.7 K/uL (1.8-8.9); NEUTROPHILS % (AUTO) 91.2 % (43.0-81.0); PLATELET COUNT (AUTO) 152 K/uL (150-450); RED BLOOD CELL COUNT(AUTO) 3.46 MIL/uL (4.0-5.2); WHITE BLOOD COUNT (AUTO) 9.5 K/uL (4.3-11.0)
--- NOTE | 2021-07-11 07:07 | NUR ---
TWISTER HAND OPENING NOTES RECEIVED PT ASLEEP IN BED, EASILY AWAKEN BY VERBAL AND TACTILE STIMULI. A/OX 1-2. PATIENT IS CZECH SPEAKING AND SPEAKS A LITTLE YI. BREATHING REGULAR AND UNLABORED, ON 3 LPM VIA NASAL CANNULA. NO SIGNS AND SYMPTOMS OF DISTRESS NOTED. NO COMPLAINTS OF PAIN OR DISCOMFORT AT THIS TIME. PATIENT ON TELE MONITOR READING CONTROLLED A-FIB @ 80'S BPM. IV ACCESS GISSEL MIDLINE SL. IV ACCESS INTACT AND PATENT. SAFETY PRECAUTIONS ENFORCED WITH BED LOCKED AND AT LOWEST POSITION. SIDE RAILS UP X2. CALL LIGHT WITHIN REACH AT ALL TIMES. WILL CONTINUE TO MONITOR
--- NOTE | 2021-07-11 07:27 | NUR ---
CALL PERSON CLOSING NOTES PT ASLEEP IN BED, EASILY AWAKEN BY VERBAL AND TACTILE STIMULI. A/OX 1-2. PATIENT IS CITIZEN OF [place] SPEAKING AND SPEAKS A LITTLE [place]. BREATHING REGULAR AND UNLABORED, ON 3 LPM VIA NASAL CANNULA. NO SIGNS AND SYMPTOMS OF DISTRESS NOTED. NO COMPLAINTS OF PAIN OR DISCOMFORT AT THIS TIME. PATIENT ON TELE MONITOR READING CONTROLLED A-FIB @ 80'S BPM. IV ACCESS GISSEL MIDLINE SL. IV ACCESS INTACT AND PATENT. SAFETY PRECAUTIONS ENFORCED WITH BED LOCKED AND AT LOWEST POSITION. SIDE RAILS UP X2. CALL LIGHT WITHIN REACH AT ALL TIMES. WILL CONTINUE TO MONITOR Addendum: 07/11/21 at 0729 by EMANUEL REID RN CALL PERSON OPENING NOTES
--- NOTE | 2021-07-11 07:27 | NUR ---
TRACTOR TRAILER OPERATOR CLOSING NOTES PT ASLEEP IN BED, EASILY AWAKEN BY VERBAL AND TACTILE STIMULI. A/OX 1-2. PATIENT IS [place] SPEAKING AND SPEAKS A LITTLE BAHAMIAN. BREATHING REGULAR AND UNLABORED, ON 3 L/MIN VIA NASAL CANNULA. NO SOB NOTED. NO S/SX OF RESPIRATORY DISTRESS NOTED. PATIENT ON TELE MONITOR READING CONTROLLED A-FIB @ 80'S BPM. IV ACCESS GISSEL MIDLINE SL. IV ACCESS INTACT AND PATENT. ALL NEEDS MET. PT KEPT CLEAN AND DRY. SAFETY PRECAUTIONS IN PLACE: BED IN LOWEST, LOCKED POSITION, BRAKES ON, AND SIDERAILS UPx2. TABLE AND CALL LIGHT WITHIN REACH. WILL ENDORSE TO ONCOMING SHIFT FOR BINA.
[2021-07-11 07:51] LABS: CALCIUM, SERUM 8.1 mg/dL (8.5-10.1); CARBON DIOXIDE 28 mmol/L (21-32); CHLORIDE 109 mmol/L (98-107); CREATININE 1.5 mg/dL (0.6-1.3); GLUCOSE 125 mg/dL (74-106); MAGNESIUM 2.9 mg/dL (1.8-2.4); POTASSIUM 3.9 mmol/L (3.5-5.1); SODIUM SERUM 143 mmol/L (136-145); UREA NITROGEN, BLOOD 72 mg/dL (7-18)
[2021-07-11 08:14] VITALS: BP 119/57
[2021-07-11] MEDS: ISOSORBIDE MONONITRATE (30MG) 30 MG TAB.SR.24H PO SCH (08:26)
[2021-07-11] MEDS: APIXABAN 5 MG TABLET PO SCH ×2 (08:26→16:00)
[2021-07-11] MEDS: BENAZEPRIL HCL 20 MG TABLET PO SCH (08:26)
[2021-07-11] MEDS: RANOLAZINE 500 MG TAB.ER.12H PO SCH ×2 (08:27→15:58)
[2021-07-11] MEDS: DILTIAZEM HCL CD 240 MG PO SCH (08:27)
[2021-07-11] MEDS: METOPROLOL TARTRATE 25 MG TABLET PO SCH ×2 (08:27→15:58)
[2021-07-11] MEDS: INSULIN GLARGINE, 100 UNIT/ML CARTRIDGE SQ SCH ×2 (08:28→16:01)
[2021-07-11] MEDS: MONTELUKAST SODIUM (10MG) 10 MG TABLET PO SCH (08:28)
[2021-07-11] MEDS: CLOTRIMAZOLE 1% 15 GM TUBE TP SCH ×2 (08:34→16:07)
--- NOTE | 2021-07-11 11:13 | NUR ---
RN NOTE PATIENT ADMANTLY REFUSING ACCUCHECKS EXPLAINED RISKS AND BENEFITS, PATIENT REFUSED X3. WILL CONTINUE TO EDUCATE
[2021-07-11] MEDS: INSULIN REGULAR, HUMAN 100 UNIT/ML 3 ML VIAL SQ PRN ×2 (11:14→16:41)
--- NOTE | 2021-07-11 12:00 | NUR ---
RN NOTE PATIENT REFUSING TO EAT LUNCH. OFFERED HYDRATION, WILL ENSURE FAMILY IS AWARE. WILL CONTINUE TO MONITOR
[2021-07-11] MEDS: DIGOXIN 0.125 MG TABLET PO SCH (12:01)
[2021-07-11 12:13] VITALS: BP 119/57
[2021-07-11] MEDS ORDERED: PRED20TA PO (13:11)
[2021-07-11] MEDS ORDERED: CEPH250S PO (13:11)
[2021-07-11] MEDS ORDERED: Insulin Glargine,Hum SQ (13:11)
[2021-07-11] MEDS ORDERED: *INS REG SQ (13:11)
[2021-07-11] MEDS ORDERED: IPRA0.2S9 NEB (13:11)
[2021-07-11] MEDS ORDERED: APIX5TAB PO (13:11)
[2021-07-11] MEDS ORDERED: LEVA1.2524 NEB (13:11)
[2021-07-11 15:54] VITALS: BP 118/78
[2021-07-11] MEDS: ACETAMINOPHEN 650 MG/20.3 ML UDC PO PRN (16:15)
--- NOTE | 2021-07-11 18:14 | NUR ---
TOUR ACTOR CLOSING NOTES PT ASLEEP IN BED, EASILY AWAKEN BY VERBAL AND TACTILE STIMULI. A/OX 1-2. PATIENT IS ETHI[place] SPEAKING AND SPEAKS A LITTLE RUSSIAN. BREATHING REGULAR AND UNLABORED, ON 3 L/MIN VIA NASAL CANNULA. NO SOB NOTED. NO S/SX OF RESPIRATORY DISTRESS NOTED. PATIENT ON TELE MONITOR READING CONTROLLED A-FIB @ 80'S BPM. IV ACCESS GISSEL MIDLINE SL. IV ACCESS INTACT AND PATENT. ALL MEDICATIONS GIVEN ORDERED. PT KEPT CLEAN AND DRY. SAFETY PRECAUTIONS IN PLACE: BED IN LOWEST, LOCKED POSITION, BRAKES ON, AND SIDERAILS UPx2. TABLE AND CALL LIGHT WITHIN REACH. WILL ENDORSE TO ONCOMING SHIFT
--- NOTE | 2021-07-11 19:00 | NUR ---
WALLPAPER REMOVER STEAM OPENING NOTE RECEIVED PT AWAKE IN BED. A/O X 1-2. PT IS STABLE ON 5L OXYGEN VIA NC. PT RECEIVING BREATHING TREATMENT AT THIS TIME. NO SOB NOTED, NO S/S OF RESPIRATORY DISTRESS. PT IS ON EXTERNAL GIS SOFTWARE ENGINEER READING AFIB CONTROLLED. NO C/O PAIN AT THIS TIME. IV ACCESS IN RIGHT UPPER MIDLINE, IV IS INTACT,PATIENT, AND FLUSHING WELL. SAFETY MEASURES MAINTAINED AT ALL TIMES. BED IN LOWEST, LOCKED POSITION, HOB ELEVATED, SIDE RAILS UP X2. CALL LIGHT AND TABLE WITHIN REACH. WILL CONTINUE WITH PLAN OF CARE
[2021-07-11 20:00] VITALS: BP 120/50
[2021-07-11] MEDS: SENNOSIDES 8.6 MG TABLET PO SCH (21:52)
[2021-07-11] MEDS: ATORVASTATIN 10 MG TABLET PO SCH (21:52)
[2021-07-11] MEDS: QUETIAPINE FUMARATE 25 MG TABLET PO SCH (21:52)
[2021-07-11] MEDS: *INSULIN REGULAR(HUMULIN R)HUM 100 UNIT/ML VIAL SQ PRN (22:09)
[2021-07-12] VITALS: BP 126/61
[2021-07-12] MEDS: IPRATROPIUM NEB FS 0.5 MG/2.5 ML AMPUL.NEB NEB SCH ×3 (01:29→13:52)
[2021-07-12 04:00] VITALS: BP 133/57
[2021-07-12] MEDS: ACETAMINOPHEN 650 MG/20.3 ML UDC PO PRN ×2 (05:29→16:47)
--- NOTE | 2021-07-12 05:29 | NUR ---
PT C/O PAIN PER PT REQUEST TYLENOL 650MG(20.3ML) PO Q6HR PRN ADMINISTERED AT THIS TIME FOR PAIN. WILL CONTINUE TO MONITOR.
[2021-07-12] MEDS: BLOOD SUGAR DIAGNOSTIC 1 EACH STRIP VI SCH ×3 (06:04→16:59)
[2021-07-12] MEDS: INSULIN REGULAR, HUMAN 100 UNIT/ML 3 ML VIAL SQ PRN ×3 (06:06→16:57)
--- NOTE | 2021-07-12 06:06 | NUR ---
BS 65. OFFERED ORANGE JUICE AND APPLE SAUCE. WILL ENDORSE TO AM RN FOR REASSESSMENT
--- NOTE | 2021-07-12 06:30 | NUR ---
TUBE BLOWER CLOSING NOTE PT IS AWAKE IN BED AT THIS TIME. A/O X1-2. ABLE TO MAKE NEEDS KNOWN. PT IS STABLE ON ROOM AIR. NO SOB NOTED, NO S/S OF RESPIRATORY DISTRESS. DRY COUGH NOTED. . PT DENIES PAIN OR DISCOMFORT AT THIS TIME. ALL NEEDS HAVE BEEN MET. PAIN MANAGEMENT ADMINISTERED PER ORDER. SAFETY, SEIZURE, AND ASPIRATION PRECAUTIONS MAINTAINED AT ALL TIMES. BED IN LOWEST, LOCKED POSITION WITH BED ALARM ON, SIDE RAILS UP X2. HOB ELEVATED. CALL LIGHT AND TABLE WITHIN REACH. WILL ENDORSE TO ONCOMING RN FOR BINA.
--- NOTE | 2021-07-12 07:00 | NUR ---
RECHECKED BS. 93 AT THIS TIME. WILL ENDORSE TO AM RN FOR BINA.
[2021-07-12 07:20] LABS: BASOPHILS % (AUTO) 0.1 % (0.0-2.0); HEMATOCRIT 33 % (33-45); HEMOGLOBIN 10.6 g/dL (11.5-14.8); LYMPHOCYTES % (AUTO) 7.4 % (20.0-44.0); MEAN CORPUSCULAR HGB CONC 33 g/dl (31.0-36.0); MEAN CORPUSCULAR VOLUME 87 fL (82-100); NEUTROPHILS % (AUTO) 88.5 % (43.0-81.0); PLATELET COUNT (AUTO) 143 K/uL (150-450); RED BLOOD CELL COUNT(AUTO) 3.75 MIL/uL (4.0-5.2); WHITE BLOOD COUNT (AUTO) 12.1 K/uL (4.3-11.0)
[2021-07-12 07:21] LABS: LYMPHOCYTES # (AUTO) 0.9 K/uL (0.8-4.8); MONOCYTES # (AUTO) 0.5 K/uL (0.1-1.30); NEUTROPHILS # (AUTO) 10.7 K/uL (1.8-8.9)
--- NOTE | 2021-07-12 07:40 | NUR ---
RN OPENING NOTE- PT AWAKE IN BED. A/O TO PERSON ONLY/ CONFUSED. PT ON 5L OXYGEN VIA NC. NO SOB NOTED, NO S/S OF RESPIRATORY DISTRESS. PT IS ON EXTERNAL STEEL TIER READING AFIB CONTROLLED. NO PAIN NOTED. IV ACCESS IN RIGHT UPPER MIDLINE, SAFETY MEASURES MAINTAINED AT ALL TIMES. BED IN LOWEST, LOCKED POSITION, HOB ELEVATED, SIDE RAILS UP X2. CALL LIGHT AND TABLE WITHIN REACH. WILL CONTINUE WITH PLAN OF CARE
[2021-07-12 07:45] LABS: CALCIUM, SERUM 8.1 mg/dL (8.5-10.1); CREATININE 1.3 mg/dL (0.6-1.3); MAGNESIUM 2.7 mg/dL (1.8-2.4); PHOSPHORUS 2.8 mg/dL (2.5-4.9); POTASSIUM 3.5 mmol/L (3.5-5.1)
[2021-07-12 08:30] VITALS: BP 127/52
[2021-07-12] MEDS: ISOSORBIDE MONONITRATE (30MG) 30 MG TAB.SR.24H PO SCH (09:04)
[2021-07-12] MEDS: METOPROLOL TARTRATE 25 MG TABLET PO SCH ×2 (09:04→16:45)
[2021-07-12] MEDS: MONTELUKAST SODIUM (10MG) 10 MG TABLET PO SCH (09:05)
[2021-07-12] MEDS: RANOLAZINE 500 MG TAB.ER.12H PO SCH ×2 (09:05→16:45)
[2021-07-12] MEDS: methylPREDNISolone SOD SUCC 40 MG/ML VIAL IV SCH (09:05)
[2021-07-12] MEDS: DILTIAZEM HCL CD 240 MG PO SCH (09:05)
[2021-07-12] MEDS: BENAZEPRIL HCL 20 MG TABLET PO SCH (09:05)
[2021-07-12] MEDS: APIXABAN 5 MG TABLET PO SCH ×2 (09:08→16:46)
[2021-07-12] MEDS: CLOTRIMAZOLE 1% 15 GM TUBE TP SCH ×2 (09:11→16:54)
[2021-07-12] MEDS: INSULIN GLARGINE, 100 UNIT/ML CARTRIDGE SQ SCH ×2 (09:11→16:50)
--- NOTE | 2021-07-12 12:27 | NUR ---
RN NOTE- DARRON ABEL ORDERED MRI BRAIN. FAMILY REFUSED CONSENT. "WE DON'T WANT TO PUT HER THROUGH THAT. "
[2021-07-12] MEDS: DIGOXIN 0.125 MG TABLET PO SCH (13:25)
[2021-07-12 15:54] VITALS: BP 146/78
--- NOTE | 2021-07-12 16:47 | NUR ---
RN NOTE- TEMP 99.0. TYLENOL 650 MG ADMINISTERED
[2021-07-12 17:53] VITALS: BP 148/76
[2021-07-12] MEDS ORDERED: DILTIAZEM HCL 30 MG TABLET PO SCH (18:00)
[2021-07-12] MEDS ORDERED: FUROSEMIDE 20 MG/2 ML VIAL IV SCH (18:30)
[2021-07-12] MEDS ORDERED: FUROSEMIDE 20 MG/2 ML VIAL IV ONE (18:30)
--- NOTE | 2021-07-12 18:35 | NUR ---
RN CLOSING NOTE- PT FOR DC TO [facility]. PENDING TRANSPORTATION. DC COMPLETED AND IN FOLDER. MD ADDED LASIX 20MG IVP. DOSE GIVEN. PT ATE WELL TODAY, NEEDS ATTENDED, FAMILY AT BEDSIDE . MRI REFUSED BY FAMILY THEY FELT PT DIDN'T NEED AT THIS POINT. SIDE RAILS UP, BED LOCKED, ASSIST . MONITOR
--- NOTE | 2021-07-12 20:00 | NUR ---
DISCHARGE NOTE PT LEFT UNIT IN STABLE CONDITION. REPORT GIVEN TO NITIN AT [facility].
== END 2021-07-12 19:50 | DRG 207 ==
LOC: ER 21:31 → TELE1 06-25 01:56 → TELE-TD 06-25 03:26 → TELE1 06-25 11:24 → ICU 06-28 11:46 → TELE 07-08 13:53
PROVIDERS: ATTEND Nurse Practitioner Acute Care
PROC: 5A1955Z Respiratory Ventilation, Greater than 96 Consecutive Hours (ICD-10-PCS; principal; 2021-06-25)
PROC: 05H533Z Insertion of Infusion Device into Right Subclavian Vein, Percutaneous Approach (ICD-10-PCS; 2021-06-25)
PROC: B546ZZA Ultrasonography of Right Subclavian Vein, Guidance (ICD-10-PCS; 2021-06-25)
PROC: 0BH18EZ Insertion of Endotracheal Airway into Trachea, Via Natural or Artificial Opening Endoscopic (ICD-10-PCS; 2021-06-28)
DX: J15.6 Pneumonia due to other Gram-negative bacteria (principal); N17.0 Acute kidney failure with tubular necrosis; I50.33 Acute on chronic diastolic (congestive) heart failure; G93.41 Metabolic encephalopathy; I63.9 Cerebral infarction, unspecified; J96.21 Acute and chronic respiratory failure with hypoxia; J96.22 Acute and chronic respiratory failure with hypercapnia; I13.0 Hypertensive heart and chronic kidney disease with heart failure and stage 1 through stage 4 chronic kidney disease, or unspecified chronic kidney disease; B37.49 Other urogenital candidiasis; D68.59 Other primary thrombophilia; G93.40 Encephalopathy, unspecified; I48.20 Chronic atrial fibrillation, unspecified; G81.91 Hemiplegia, unspecified affecting right dominant side; J44.0 Chronic obstructive pulmonary disease with (acute) lower respiratory infection; R57.9 Shock, unspecified; J15.9 Unspecified bacterial pneumonia; N18.9 Chronic kidney disease, unspecified; D69.6 Thrombocytopenia, unspecified; G47.33 Obstructive sleep apnea (adult) (pediatric); E11.22 Type 2 diabetes mellitus with diabetic chronic kidney disease; D50.9 Iron deficiency anemia, unspecified; E78.5 Hyperlipidemia, unspecified; E87.6 Hypokalemia; I16.0 Hypertensive urgency; I25.10 Atherosclerotic heart disease of native coronary artery without angina pectoris; Z20.822 Contact with and (suspected) exposure to COVID-19; Z22.322 Carrier or suspected carrier of Methicillin resistant Staphylococcus aureus; D63.8 Anemia in other chronic diseases classified elsewhere; Z68.31 Body mass index [BMI] 31.0-31.9, adult; J20.9 Acute bronchitis, unspecified; I45.10 Unspecified right bundle-branch block; M71.22 Synovial cyst of popliteal space [Baker], left knee; Z79.01 Long term (current) use of anticoagulants; I65.23 Occlusion and stenosis of bilateral carotid arteries; R13.10 Dysphagia, unspecified; Z66 Do not resuscitate
CPT/HCPCS: 31720; 36415; 36600; 70450-TC; 71045-TC; 71250-TC; 80048-TC; 80053-TC; 80162-TC; 80202-TC; 81001; 82550-TC; 82728-TC; 82803-TC; 82962-TC; 83540-TC; 83735-TC; 83880; 83970; 84100-TC; 84155; 84165; 84439-TC; 84443-TC; 84478-TC; 84481; 84484-TC; 85025-TC; 85730-TC; 86140-TC; 87040-TC; 87070-TC; 87081-TC; 87086-TC; 92526; 92611-TC; 93307-TC; 93880-TC; 93970-TC; 94002-TC; 94003-TC; 94640; 94760-TC; 94799-TC; A4216; A4217; C9803; G0378; J0692; J1644; J1815; J1940; J2185; J2543; J2916; J2920; J3370; J3480; J3490; J7030; J7050; J7060; P9047; U0003